=== PATIENT | male | born 1945 | race Caucasian/White ===

== ENCOUNTER 2024-08-14 06:03 | Inpatient (IN) ==
--- NOTE | 2024-07-18 10:19 | PAT Medication Instructions ---
Medication Instructions Date of Service July 18, 2024 Home Medications acetaminophen 500 mg tablet 500 mg PO BID PRN Pain aspirin 81 mg capsule 81 mg PO QAM diltiazem HCl 120 mg capsule,24 hr,extended release 120 mg PO QAM famotidine 20 mg tablet 20 mg PO QPM fenofibrate micronized 43 mg capsule 43 mg PO QAM furosemide 20 mg tablet 20 mg PO QAM icosapent ethyl 1 gram capsule (Vascepa) 2 g PO BID levothyroxine 75 mcg tablet 75 mcg PO QAM metoprolol succinate 100 mg tablet,extended release 24 hr 100 mg PO BID pantoprazole 40 mg tablet,delayed release 40 mg PO QAM rivastigmine tartrate 1.5 mg capsule 1.5 mg PO BID warfarin 5 mg tablet (Jantoven) 5 mg PO QAM ASK your prescriber and surgeon warfarin 5 mg tablet (Jantoven) 5 mg PO QAM icosapent ethyl 1 gram capsule (Vascepa) 2 g PO BID STOP taking 48 hours before surgery fenofibrate micronized 43 mg capsule 43 mg PO QAM DO NOT take the morning of surgery furosemide 20 mg tablet 20 mg PO QAM rivastigmine tartrate 1.5 mg capsule 1.5 mg PO BID Take morning of surgery With a small sip of water, OTHERWISE NOTHING TO EAT OR DRINK AFTER MIDNIGHT: acetaminophen 500 mg tablet 500 mg PO BID PRN Pain (if needed) aspirin 81 mg capsule 81 mg PO QAM (unless surgeon directed otherwise) diltiazem HCl 120 mg capsule,24 hr,extended release 120 mg PO QAM levothyroxine 75 mcg tablet 75 mcg PO QAM metoprolol succinate 100 mg tablet,extended release 24 hr 100 mg PO BID pantoprazole 40 mg tablet,delayed release 40 mg PO QAM Take evening before surgery acetaminophen 500 mg tablet 500 mg PO BID PRN Pain (if needed) famotidine 20 mg tablet 20 mg PO QPM metoprolol succinate 100 mg tablet,extended release 24 hr 100 mg PO BID rivastigmine tartrate 1.5 mg capsule 1.5 mg PO BID Other Notes If you have any questions please call us at [phone] or [phone] or [phone] or [phone]
--- NOTE | 2024-07-27 10:49 | Anesthesiology Consultation ---
Date of Service July 27, 2024 Assessment & Plan (1) Encounter for pre-operative examination: - Check coags DOS - Infectious disease screening: Per assessment on 07/27/24- No known recent infectious disease contacts or current infectious disease symptoms. - PCP visit (07/10/24): "From my for my standpoint, he is cleared for surgery. He will get clearance from cardiol on 07/17. He will get instructions regarding his Coumadin from the clinic at [facility] that manages his Coumadin." - [facility] Cardiology visit (07/17/24): "He can easily perform 4 metabolic units of activity without cardiac symptoms.. Unfortunately is incredibly statin intolerant.. His blood pressure is wellcontrolled.. He continues to be in atrial flutter today.. Not symptomatic..Utilizing the NSQIP risk calculator he has a 1% risk of cardiovascular complications during the operative and immediate postoperative period, which would be considered low risk for a moderate risk surgery. Due to this low risk, we did perform an ECG which was unchanged from back in October.. Would not recommend any further cardiac testing prior to spine surgery.. His warfarin can be held up to 5 days prior to procedure and he would not need an anticoagulation bridge prior to surgery. His aspirin should also be held prior to surgery." - Consents: Early stages of dementia. A+Ox3 at PAT visit. Patient signs own consents. (Of note, Son is KALIN Burris- and will be present DOS). - Awaiting most recent pacer check ([facility] cardio/Dr. Paz). Patient otherwise acceptable risk for surgery. Chart Review Chart Review: Patient seen in Pre Admission Testing Teaching & Discussion Pre-Anesthesia Teaching/Discussion Notes: Instructed NPO after midnight before surgery,except medications with 15 cc of water. Medication instructions provided according to the [facility] guidelines. History Surgery Operation Date: 08/14/24 12:55 Proposed Procedures p L4-L5 Decompression and Fusion, Spinal Cord Monitoring - Jef Durbin DO Height/Weight Height: 5 ft 6 in Weight: 88 kg Allergies Allergy/AdvReac Type Severity Reaction Status Date / Time Izyxofy-CLF-MgM Reductase Allergy Unknown Muscle Verified 07/27/24 10:11 Inhibitor aches [Daxnzbo-Plq-Qjd Reductase Inhibitor] flecainide AdvReac Severe Severe Verified 07/27/24 10:11 bradycardia Medications Home Medications Medication Instructions Recorded Confirmed Last Taken acetaminophen 500 mg tablet 500 mg PO BID PRN Pain 07/18/24 07/18/24 Unknown aspirin 81 mg capsule 81 mg PO QAM 07/18/24 07/18/24 Unknown diltiazem HCl 120 mg capsule,24 120 mg PO QAM 07/18/24 07/18/24 Unknown hr,extended release famotidine 20 mg tablet 20 mg PO QPM 07/18/24 07/18/24 Unknown fenofibrate micronized 43 mg 43 mg PO QAM 07/18/24 07/18/24 Unknown capsule furosemide 20 mg tablet 20 mg PO QAM 07/18/24 07/18/24 Unknown icosapent ethyl 1 gram capsule 2 g PO BID 07/18/24 07/18/24 Unknown (Vascepa) levothyroxine 75 mcg tablet 75 mcg PO QAM 07/18/24 07/18/24 Unknown metoprolol succinate 100 mg 100 mg PO BID 07/18/24 07/18/24 Unknown tablet,extended release 24 hr pantoprazole 40 mg tablet,delayed 40 mg PO QAM 07/18/24 07/18/24 Unknown release rivastigmine tartrate 1.5 mg 1.5 mg PO BID 07/18/24 07/18/24 Unknown capsule warfarin 5 mg tablet (Jantoven) 5 mg PO QAM 07/18/24 07/18/24 Unknown Past Medical History Medical History Atrial fibrillation and flutter CAD (coronary artery disease) stent x1 (2016) Chronic back pain Chronic kidney disease Degenerative disc disease Dementia Early stages (A&Ox3) Lives with son and [id number] (son does have POA) Dyslipidemia Gastroparesis GERD (gastroesophageal reflux disease) History of COVID-19 ~2021: mild cold symptoms > resolved Hx of gastric ulcer ~1980s Hx of renal calculi Passed on own, no surgical intervention needed () Hypertension Hypothyroidism Osteoarthritis Pacemaker Implanted 2017, [employer] device Follows with Dr. Paz ([facility] Cardiology) Valvular heart disease s/p MV repair (2013) Echo 07/2023: There is a mitral valve bioprosthesis present. Significant mitral valve prosthesis stenosis/regurgitation is absent. Exercise / Class Metabolic Activity III < 4 Walking/Shop/Light housework Past Family History Family History Other No family history of adverse response to anesthesia Past Surgical History Surgical History H/O hernia repair History of cardiac cath 2017 ([facility]) History of cholecystectomy History of colonoscopy History of esophagogastroduodenoscopy (EGD) History of heart artery stent stent x1 (2016) S/P hip replacement Right? (unilateral) S/P mitral valve repair (2013) [facility] S/P placement of cardiac pacemaker (2017) Status post medial meniscus repair Per records Past Anesthesia History No Hx of Anesthesia Complications and No Family Hx of Anesthesia Complications History of PONV No Hx of PONV and No Hx of Motion Sickness Social History Smoking Status: Never smoker Do You Dip or Chew Tobacco: No Hx Alcohol Use: No Hx Substance Use: No substance use type: does not use Review of Systems Patient denies chest pain, shortness of breath, fever, chills, cough, wheezing, palpitations. Physical Exam Vital Signs BP 118/64 P 59 TEMP 97.4 SP02 99%RA RESP 18 Physical Full cervical extension range of motion. Full TMJ range of motion. TMD > 3.5 finger breaths Mallampati Score II Dentition: + upper fulld enture, lower partial Lungs: clear throughout to auscultation Cardiac: regular rate and rhythm, distant heart sounds Spine: normal Carotid arteries: negative bruit Extremities: no LE edema Lab Results Anesthesia Preop Results Results Anesthesia Widget: WBC 8.50 K/ul (4.8-10.8) 07/27/24 Hgb 13.0 g/dl (14.0-18.0) L 07/27/24 Hct 39.4 % (42.0-52.0) L 07/27/24 Plt 326 K/uL (130-400) 07/27/24 Na 141 mmol/L (136-145) 07/27/24 K 3.9 mmol/L (3.5-5.1) 07/27/24 Cl 110 mmol/L (98-107) H 07/27/24 CO2 23 mmol/L (21-32) 07/27/24 BUN 29 mg/dl (6-23) H 07/27/24 Creat 1.51 mg/dl (0.6-1.4) H 07/27/24 Glucose Level 84 mg/dl (70-99(Fasting)) 07/27/24 PT 32.4 Seconds (9.0-12.0) H 07/27/24 PTT 47 Seconds (21-31) H 07/27/24 INR 3.3 (0.9-1.1) H 07/27/24 Urine Color Yellow 07/27/24 Urine Appearance Clear (Clear) 07/27/24 Urine pH 5.5 (4.5-7.5) 07/27/24 Urine Specific [place] 1.025 (1.000-1.030) 07/27/24 Urine Protein Negative (Negative) 07/27/24 Urine Glucose (UA) Negative (Negative) 07/27/24 Urine Ketones Negative (Negative) 07/27/24 Urine Blood Negative (Negative) 07/27/24 Urine Nitrite Negative (Negative) 07/27/24 Urine Bilirubin Negative (Negative) 07/27/24 Urine Urobilinogen Negative (Negative) 07/27/24 Urine Leukocyte Esterase Negative (Negative) 07/27/24 Blood Type A Positive 07/27/24 Antibody Screen NEGATIVE 07/27/24 Testing Electrocardiogram Date: 07/17/24 Atrial flutter with variable AV block at [address] and T wave abnormality, consider inferior ischemia. ECG performed at cardiac preop evaluation appointment in which compared to prior 10/2023, no significant change noted per cable maintainer comparison. Chest X-Ray Date: 07/10/24 A cardiac device projects over the left heart. Median sternotomy wires present. No active disease. Echocardiogram Date: 08/05/23 LVEF 55-59%. There is a mitral valve bioprosthesis present. Significant mitral valve prosthesis stenosis/regurgitation is absent. Mild TR. Atrial fibrillation during the examination.
--- OUTSIDE RECORDS SUMMARY | 2024-08-14 06:09 | External Medical Summary | Summary of Care ---
Author Name Unknown Organization [facility] Address [address] [place] [address] Phone [phone] Care Team Providers Care Consulting Sme Name Role Phone Deshawn Rodriguez MD Primary Care Provider Reason for Visit * Reason Comments eRx-Medication Refill Encounter Details Date Type Department Care Team (Late st Contact Info) Description 07/30/2024 Refill [facility] [address] [place] [address] Deshawn Rodriguez MD [address] [facility] [place] [address] Dyslipidemia, goal LDL below 100; Hypertriglyceridemia Allergies Active Allergy Reactions Criticality Noted Date Comments Rosuvastatin Calcium 08/19/2012 Leg cramps Flecainide 02/19/2020 Atorvastatin Calcium 10/07/2012 Leg cramps Pravastatin 07/26/2015 Pains in the legs Simvastatin 06/14/2002 leg cramps Rivaroxaban Bradycardia 11/26/2016 Ezetimibe 02/19/2021 Pain, leg weakness documented as of this encounter (statuses as of 08/03/2024) Medications warfarin sodium (COUMADIN) 5 MG TabletIndicatio ns:Atrial fibrillation (HCC) One and half tablets daily as directed by the Co-ag clinic. 45 Tab 11/30/19 20 Active nitroglycerin (NITROSTAT) 0.4 MG SUBL 1 Tablet. 05/17/20 19 Active Aspirin 81 MG Oral Tablet Delayed Release 1 Tablet. 06/27/20 Active Ondansetron HCl 4 MG Oral Tablet Take 1 Tablet by mouth every 8 hours as needed for Nausea. 20 Tablet 3 4:01 PM EDT 10/10/19 Active Additional Information Patient not taking.Reported on 08/18/2023 Icosapent Ethyl 1 GM Oral Capsule (Vascepa) Take 2 Capsules by mouth 2 times a day with morning and evening meals. Swallow capsules whole, do not open or break. 120 Capsule 11 12/25/19 23 Active Tylenol 325 MG Oral Capsule (Acetaminophen) Take 325 mg by mouth every 8 hours as needed for Pain. Active Rivastigmine Tartrate 1.5 MG Oral Capsule (Exelon) 12/11/19 24 Active dilTIAZem HCl ER Coated Beads 120 MG Oral Capsule Extended Release 24 Hour (Cardizem CD) 01/03/20 24 Active Metoprolol Succinate ER 100 MG Oral Tablet Extended Release 24 Hour (toPROL XL) 1 Tablet in the morning and 1 Tablet before bedtime. 12/11/19 24 Active Ezetimibe 10 MG Oral Tablet (Zetia) Take 1 Tablet by mouth in the morning. Active Lisinopril 10 MG Oral Tablet (Prinivil) Take 1 Tablet by mouth in the morning. Active Pantoprazole Sodium 40 MG Oral Tablet Delayed Release (Protonix) TAKE ONE TABLET BY MOUTH ONCE DAILY 90 Tablet 1 04/23/20 24 Active Famotidine 20 MG Oral Tablet (Pepcid) Take 1 Tablet by mouth every evening. 60 Tablet 2 05/02/20 24 Active Levothyroxine Sodium 75 MCG Oral Tablet (Levoxyl)Indica tions:Hypothyro idism TAKE ONE TABLET BY MOUTH ONCE DAILY DIRECTED 90 Tablet 1 05/22/20 24 Active Furosemide 20 MG Oral Tablet (Lasix) TAKE ONE TABLET BY MOUTH IN THE MORNING 90 Tablet 1 05/22/20 24 Active Fenofibrate Micronized 43 MG Oral CapsuleIndicati ons:Dyslipidemi a, goal LDL below 100,Hypertrigly ceridemia TAKE ONE CAPSULE BY MOUTH ONCE DAILY 90 Capsule 07/31/19 25 Active Fenofibrate Micronized 43 MG Oral CapsuleIndicati ons:Dyslipidemi a, goal LDL below 100,Hypertrigly ceridemia TAKE ONE CAPSULE BY MOUTH ONCE DAILY 90 Capsule 2 10/28/19 24 025 Discontinued documented as of this encounter (statuses as of 08/03/2024) Active Problems Problem Noted Date Diagnosed Date COPD, group B, by GOLD 2017 classification 07/31 Overview: Per COPD GOLD Classification Mild dementia without behavi oral disturbance, psychotic disturbance, mood disturbance, or anxiety 01/10/2024 Heart failure 01/10/2024 Centrilobular emphysema 08/16/2023 Longstanding persistent atrial fibrillation 07/19 S/P MVR (mitral valve replacement) 07/31/2023 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 Patient will try physical therapy. Hypertensive kidney disease with stage 3b chronic kidney disease 02/24/2021 Overview: Per CKD protocol Chronic kidney disease, stage 3b 02/24/2021 Overview: Per CKD protocol Presence of cardiac pacemaker 03/08/2020 Overview (03/08/2020): Leadless pacemaker was placed 02/2020 for symptomatic bradycardia 25 per minute S/P right coronary artery (RCA) stent placement 05/11/2019 Overview (05/11/2019): 05/11/2019 done at [facility] Permanent atrial fibrillation 02/06/2019 Statin intolerance 08/05/2017 Overview (03/07/2018): 03/07/2018 Zetia too expensive Chronic anticoagulation 02/23/2017 Overview (02/23/2017): By [facility] Hiatal hernia 02/23/2017 Overview (02/23/2017): 02/23/2017 Large Will have surg eval Medically noncompliant 12/07/2016 S/P mitral valve repair 08/29/2013 Overview (03/07/2018): TTE done on 09/30/2012 show moderately severe mitral regurg with nml mitral valve structure Hypogonadism, male 08/19/2012 HTN (hypertension) 03/16/2012 History of iron deficiency anemia 02/19/2012 Overview (04/09/2016): 04/09/2016 taking iron Hemoglobin Results: HGB(g/dL) Cathy Dt/Tm Resulted Value Status 12/10/15 8:45A 12/10/15 15.1 FINAL 04/03/15 9:52A 04/03/15 13.9* FINAL 08/29/13 9:03A 08/29/13 14.5 FINAL HGB(g/dL) Cathy Dt/Tm Resulted Value Status 08/29/13 9:03A 08/29/13 14.5 FINAL 04/13/13 8:32A 04/13/13 12.6* FINAL 11/17/12 1:38P 11/17/12 14.6 FINAL 02/17/12 4:25P 02/18/12 12.8* FINAL 10/23/11 9:50A 10/23/11 12.7* FINAL 02/06/11 8:25A 02/06/11 13.1* FINAL 09/27/09 8:15A 09/27/09 12.8* FINAL 05/17/09 8:16A 05/17/09 13.2* FINAL 11/30/08 8:06A 11/30/08 13.5* FINAL 06/01/08 8:00A 06/01/08 13.8* FINAL 11/18/07 8:07A 11/18/07 13.6* FINAL 04/08/07 7:35A 04/08/07 13.8* FINAL 10/15/06 7:58A 10/15/06 14.3 FINAL Vitamin D deficiency 02/19/2012 Erectile dysfunction 02/17/2012 Testosterone deficiency 08/03/2011 Overview (03/21/2015): 03/21/2015 Took T injection for ~1 yr Stopped ~ 1yr ago no help with libido or erections HAs had Monthly testosterone injectionsby Dr Gil Barber flutter 07/31/2010 HYPOTHYROIDISM NOS 05/04/2010 Overview (03/07/2018): TSH Results: TSH(uIU/mL) Cathy Dt/Tm Resulted Value Status 08/23/17 8:23A 08/23/17 1.42 FINAL 11/26/16 6:13P 11/26/16 1.89 FINAL 07/23/16 9:33A 07/23/16 3.34 FINAL 04/03/15 9:52A 04/03/15 1.44 FINAL 08/29/13 9:03A 08/29/13 4.39* FINAL 04/13/13 8:32A 04/14/13 9.91* FINAL Dyslipidemia, goal LDL below 70 07/03/2009 Overview (07/23/2016): LDL (DIRECT MEASURE)(mg/dL) Cathy Dt/Tm Resulted Value Status 04/09/16 9:15A 04/09/16 142* FINAL Advance directive discussed with patient 005 Overview (07/26/2015): 07/26/2015 Discussed advance directive and living will 1 POA 2 POA son Ryan Burris [phone] POA daughter Trinh Doyle Given brochure No, Advance Directive brochure given to patient at prior appointment. Family history of cardiovascular disease 002 CAD (coronary artery disease) Overview (03/21/2015): No critical CAD documented as of this encounter (statuses as of 08/03/2024) Resolved Problems Problem Noted Date Diagnosed Date Resolved Date Syncope and collapse 07/31/2023 024 Acute cholecystitis 05/16/2023 08/16/19 24 Diverticulitis of sigmoid colon 04/02/2023 08/16/2023 Chronic kidney disease, stage 3a 11/26/2020 03/04/2021 Overview: Per CKD protocol Hypertensive kidney disease with stage 3a chronic kidney disease 08/26/2020 03/04/2021 Overview: Per CKD protocol Unstable angina 05/08/2019 02/19/2020 Pain in left arm 05/06/2019 05/08/2019 Hypertensive kidney disease with stage 3 chronic kidney disease 01/16/2019 08/29/2020 Overview: Per CKD protocol Heme positive stool 01/12/2017 03/07/20 18 Overview (08/05/2017): 08/05/2017 was likely due to the large paraesoph hernia . 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 documented as of this encounter (statuses as of 08/03/2024) Immunizations Name Administration Dates Next Due COVID-19 mRNA, LNP-s, No Pre serve, 2-Dose Series (Anaplan) 05/21/2021,10/01/2020,09/01/2020 PPD 05/04/2016 Pneumococcal Conjugate Vacc, 13 Valent (Prevnar) 03/21/2015 Pneumococcal Polysaccharide PPV23 (Pneumovax) 03/27/2016,04/18/2007 Seasonal Influenza Vac., MDV , IM, 0.5 mL (Fluzone) 03/21/2015,04/16/2014,04/11/2013,04/20,08/03/2011(Deferred: Patient Refused),06/18/2011,06/06/2008 Seasonal Influenza, High Dos e, Trivalent, PF, IM (Fluzone HD) 05/13/2024,05/08/2019 Seasonal Influenza, PF, 6 M & above, IM , (FluLaval or Fluzone) 06/27/2018 Seasonal Influenza, Quadriva lent Hd (Fluzone Hd) 04/02/2023,04/15/2022,04/04/2022,08/25 Seasonal Influenza, Quadriva lent, No Preserve, IM 04/24/2016 TD, Preservative Free 12/06/2008, 009(Deferred: Patient Refused) TDAP (age 10 and older)(Boostrix) 02/19/2020 Zoster Vaccine Recombinant (Shingrix) 02/19/2020 documented as of this encounter Social History Tobacco Use Types Packs/Day Years Used Date Smoking Tobacco: Former Cigarettes 0.5 12 Pipe Quit: 1997 Smokeless Tobacco: Former Comments:pipe smoker-1/2 nazario ch of tobacco per day Alcohol Use Standard Drinks/Week Comments No 0 (1 standard drink = 0.6 oz pur e alcohol) PHQ-2 Answer Date Recorded PHQ Adult Total Score 0 08/16/2023 Hunger Vital Sign Answer Date Recorded Within the past 12 months, y ou worried that your food would run out before you got the money to buy more. Never true 08/18/19 24 Within the past 12 months, t he food you bought just didn't last and you didn't have money to get more. Never true 08/18/2023 Childcare Answer Date Recorded Do you feel overwhelmed with taking care of a child, family member or friend? No 08/18/2023 Does your family need help f inding childcare? (Household - for ages 0-17 years) Not on file 08/18/2023 Clothing Answer Date Recorded Have you been unable to get clothing when it was really needed? No 08/18/2023 Is your family able to get c lothes or diapers when needed? (Household - for ages 0-17 years) Not on file 08/18/2023 Personal Safety Answer Date Recorded Do you feel unsafe or have concerns for your saf ety? No 08/18/2023 Do you have concerns for you r family's safety? (Household - for ages 0-17 years) Not on file 08/18/2023 Utilities Answer Date Recorded Do you have trouble paying y our heating, water, or electric bill? No 08/18/2023 Is your family able to pay t he heat, water, or electric bill? (Household - for ages 0-17 years) Not on file 08/18/2023 Does your family have access to good internet? (Household - for ages 0-17 years) Not on file 08/18/2023 Employment Status Answer Date Recorded Are you unemployed or without regular income? No 08/18/2023 Does the household have a re gular source of income? (Household - for ages 0-17 years) Not on file 08/18/2023 Social Connections Answer Date Recorded How often do you feel lonely or isolated from th ose around you? Never 08/18/2023 Financial Resource Strain Answer Date R ecorded Do you have any trouble payi ng for your medications, or do you think you might in the future? No 08/18/2023 Does your family have troubl e paying for medicine? (Household - for ages 0-17 years) Not on file 08/18/2023 Transportation Needs Answer Date Record ed READ ONLY Do you have troubl e getting a ride to medical visits or work? Never True 08/18/2023 Does your family have a hard time getting a ride to doctors visits? (Household - for ages 0-17 years) Not on file 08/18/2023 Has lack of transportation k ept you from medical appointments, meetings, work, or from getting things needed for daily living? Check all that apply. (Adult - for ages 18 years and over) Not on file 08/18/2023 Do you (or your family) have trouble finding or paying for a ride (transportation)? (Household - for ages 0-17 years) Not on file 08/18/2023 Housing Stability Answer Date Recorded Do you currently live in a s helter or have no steady place to sleep at night? No 08/18/2023 READ ONLY Do you think you a re at risk of becoming homeless? No 08/18/2023 Does your family worry about paying for your home or becoming homeless? (Household - for ages 0-17 years) Not on file 0 08/18/2023 Are you homeless or worried that you might be in the future? (Adult - for ages 18 years and over) Not on file Are you (or your family) keegan eless or worried that you might be in the future? (Household - for ages 0-17 years) Not on file Food Insecurity Answer Date Recorded Do you need food for this week? No 08/18/2023 Are you able to get enough f ood for your family? (Household - for ages 0-17 years) Not on file 08/18/2023 Does your family need food t his week? (Household - for ages 0-17 years) Not on file 08/18/2023 Do you always have enough fo od for your family? 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 Answer Date of Assessment Author No 08/05/2023 3:56 PM Cam Proctor RN * Are you blind or do you have serious difficulty seeing, even when wearing glasses? Answer Date of Assessment Author No 08/05/2023 3:56 PM Cam Proctor RN * Do you have serious difficulty walking or climbing stairs? (5 years old or older) Answer Date of Assessment Author No 08/05/2023 3:56 PM Cam Proctor RN * Do you have difficulty dressing or bathing? (5 years old or older) Answer Date of Assessment Author No 08/05/2023 3:56 PM Cam Proctor RN * Because of a physical, mental, or emotional condition, do you have difficulty doing errands alone such as visiting a doctors office or shopping? (15 years old or older) Answer Date of Assessment Author No 08/05/2023 3:56 PM Cam Proctor RN documented as of this encounter Mental Status * Because of a physical, mental, or emotional condition, do you have serious difficulty concentrating, remembering, or making decisions? (5 years old or older) Answer Entry Date Author No 08/05/2023 3:56 PM Cam Proctor RN documented in this encounter Miscellaneous Notes * Telephone Encounter - Ryan Hodges - 08/03/2024 10:51 PM EST Received message from [facility] regarding patient needing labs. Patient was notified. Successfully contacted patient and provided [facility] message. * Telephone Encounter - Brain Reynaga [facility] - 07/31/2024 9:41 AM ESTSigned Prescriptions: Disp Refills Fenofibrate Micronized 43 MG Oral Capsule 90 Cap*0 Sig: TAKE ONE CAPSULE BY MOUTH ONCE DAILY Authorizing Provider: DESHAWN RODRIGUEZ Ordering User: BRAIN REYNAGA * Telephone Encounter - Brain Reynaga RPh - 07/31/2024 9:40 AM EST Provided 90 days supply with 0 refill(s). Per refill protocol patient should have lipid panel on file within past year. Reviewed AMP report, Care Gaps/Health Maintenance, medications list, and for any routine labs typically ordered for this patient. Lab orders placed. Please contact patient to advise of labs ordered for blood draw. Recommend patient to fast if able for labs. Patient may still have water and regular medications. Advise to obtain labs before requesting the next refill. Thank you, Brain Reynaga, PharmD Clinical Pharmacist [facility] ([facility]) 07/31/24 9:40 AM [phone] documented in this encounter Plan of Treatment Upcoming Encounters Date Type Department Care Team (Late st Contact Info) Description 01/08/2025 9:00 AM EDT Office Visit [facility] [address] [place] [phone] Deshawn Rodriguez MD [address] [phone] Scheduled Procedures Name Priority Associated Diagnoses Date/Ti me COLONOSCOPY FLEXIBLE PROXIMA L DIAGNOSTIC Recall History of colonic polyps Health Maintenance Due Date Last Done Comments Zoster Vaccines (2 of 2) 04/15/2020 02/19/2020 Adult Wellness Visit 06/02/2023 06/02/2022 GFR 02/07/2024 08/09/2023, 07/20, 08/07/2023, Additional history exists COVID-19 Vaccine ( season) 2024 05/21/2021, 10/01/2020, 09/01/2020 Albumin/Creatinine Ratio 05/27/2024 05/27/2023, 11/2016 CKD PHOS USE SMARTSET 10312 08/01/202407/19, 10/09/2022, 10/08/2022, Additional history exists CKD HGB USE SMARTSET 71238 08/09/202408/09, 08/08/2023, 08/07/2023, Additional history exists Depression Screening 08/16/2024 08/16/2023 TSH 11/24/2024 11/25/2023, 10/2023, 10/05/2022, Additional history exists O2 ASSESSMENT COMPLETED IN PAST YEAR FOR COPD 07/10/2025 07/10/2024 Colonoscopy 04/02/2028 04/02/2023, 03/19, 02/05/2017, Additional history exists DTap/Tdap Vaccines (2 - Td or Tdap) 02/18/2030 02/19/2020, 12/06/2008 Pneumococcal Vaccine: 50+ Years Completed 03/27/2016, 03/21/2015, 04/18/2007 RETIRED - COLONOSCOPY-EVERY 5 YRS AGES 18-100 Discontinued 04/02/2023, 04/02/2023, 02/05/2017, Additional history exists Alpha-1 Antitrypsin Completed 01/27/2024 Influenza Vaccine (FLU shot) Completed 05/13/2024, 05/13/2024, 04/02/2023, Additional history exists HPV (Gardasil) Vaccine Aged Out No lo nger eligible based on patient's age to complete this topic Hepatitis B Vaccine Aged Out No longe r eligible based on patient's age to complete this topic MENINGOCOCCAL (MENACTRA/MENVEO) Aged Out No longer eligible based on patient's age to complete this topic documented as of this encounter Medical Devices Not on filedocumented as of this encounter Results * (ABNORMAL) LIPID PANEL WITH DIRECT LDL IF TG IS HIGH (08/03/2024 1:43 PM EST) Triglycerides 395(H) <=174 mg/dL 08/03/2024 9:21 PM EST [facility] Comment: Triglyceride Reference Ranges (mg/dL): <150 Acceptable 150-174 Borderline high 175-499 High >=500 Very high Cholesterol 274(H) <200 mg/dL 08/03/2024 9:21 PM EST [facility] Comment: Total Cholesterol Reference Ranges (mg/dL): <200 Desirable 200-239 Borderline high >=240 High HDL Cholesterol 21(L) >39 mg/dL 9:21 PM EST [facility] Comment: HDL Cholesterol Reference Ranges (mg/dL): >=60 High (Desirable) <50 Low (Undesirable) For Females <40 Low (Undesirable) For Males Non-HDL Cholesterol 253(H) <=159 mg/dL 08/03/2024 9:21 PM EST [facility] Comment: Non-HDL Cholesterol Reference Range (mg/dL): <100 Target level for high risk ASCVD patient <130 Optimal for general population 130-159 Near optimal for general population 160-189 Borderline High 190-219 High >=220 Very High LDL Cholesterol 174(H) <=129 mg/dL 08/03/2024 9:21 PM EST [facility] Comment: LDL Cholesterol Reference Ranges (mg/dL): <70 Target level for high risk ASCVD patient <100 Optimal for general population 100-129 Near optimal for general population 130-159 Borderline high 160-189 High >=190 Very high Blood Venipuncture / Unknown 08/03/2024 1:43 PM EST 08/03/2024 1:43 PM EST Brain Reynaga [facility] LAB BLOOD ORDERABLES Fin al Result [facility] [address] [place] [address] documented in this encounter Visit Diagnoses Diagnosis Dyslipidemia, goal LDL below 100 Other and unspecified hyperlipidemia Hypertriglyceridemia Pure hyperglyceridemia documented in this encounter Advance Directives * Full Code (Latest Code Status on File) Date Activated Date Inactivated Comments 08/05/2023 12:00 PM 08/09/2023 6:26 PM This order reflects the patients wishes and were consensually agreed upon. Question Answer Comments Discussion of Advance Directives occurred with: Family * Full Code Date Activated Date Inactivated Comments 07/31/2023 12:50 PM 08/03/2023 5:08 PM This order reflects the patients wishes and were consensually agreed upon. Question Answer Comments Discussion of Advance Directives occurred with: Patient Does the patient have a Living Will? No Does the patient have Health Care Power of Attor pamela? No * Full Code Date Activated Date Inactivated Comments 05/16/2023 6:34 AM 05/20/2023 3:43 PM This order reflects the patients wishes and were consensually agreed upon. Question Answer Comments Discussion of Advance Directives occurred with: Family * Full Code Date Activated Date Inactivated Comments 05/16/2023 5:30 AM 05/16/2023 6:33 AM This order reflects the patients wishes and were consensually agreed upon. Question Answer Comments Discussion of Advance Directives occurred with: Patient * No Code Date Activated Date Inactivated Comments 10/05/2022 6:51 AM 10/09/2022 7:47 PM This order r eflects the patients wishes and were consensually agreed upon. Question Answer Comments Discussion of Advance Directives occurred with: Patient Does the patient have a Living Will? No Does the patient have Health Care Power of Attor pamela? No Care Teams Consulting Sme Relationship Specialty Start Date End Date Deshawn Rodriguez MD [address] [address] PCP - General Family Medicine 01/27/23 documented as of this encounter
--- OUTSIDE RECORDS SUMMARY | 2024-08-14 06:09 | External Medical Summary ---
Author Name Unknown Address Unknown Organization [id number]:LABORATORY [facility] - [address] [address] Laboratory Report Ordering Provider Test Date Status ZACKARY CROWELL 08/03/2024 13:43:47 Final Warfarin Therapy
INR: 2 .0-3.0 conventional anticoagulation
INR: 2.5- 3.5 high intensity anticoagulation Observation Date Value Abnormality Reference (Units ) Status PT 08/03/2024 13:43:47 26.6 Above high normal 11 .6-15.2 (seconds) Final INR 08/03/2024 13:43:47 2.4 Above high normal 0. 8-1.2 Final Performing Location [facility] - [address] [place] [address]
--- OUTSIDE RECORDS SUMMARY | 2024-08-14 06:09 | External Medical Summary | Summary of Care ---
Author Name Unknown Organization [facility] Address [address] [place] [address] Phone [phone] Care Team Providers Care Store Consultant Name Role Phone Gregory Rodriguez MD Primary Care Provider Encounter Details Date Type Department Care Team (Late st Contact Info) Description 08/07/2024 Population Health External Data Unspecified Department Allergies Active Allergy Reactions Criticality Noted Date Comments Rosuvastatin Calcium 08/19/2012 Leg cramps Flecainide 02/19/2020 Atorvastatin Calcium 10/07/2012 Leg cramps Pravastatin 07/26/2015 Pains in the legs Simvastatin 06/14/2002 leg cramps Rivaroxaban Bradycardia 11/26/2016 Ezetimibe 02/19/2021 Pain, leg weakness documented as of this encounter (statuses as of 08/07/2024) Medications warfarin sodium (COUMADIN) 5 MG TabletIndication s:Atrial fibrillation (HCC) One and half tablets daily as directed by the [facility]. 45 Tab 0 Active nitroglycerin (NITROSTAT) 0.4 MG SUBL 1 Tablet. 9 Active Aspirin 81 MG Oral Tablet Delayed Release 1 Tablet. 0 Active Ondansetron HCl 4 MG Oral Tablet Take 1 Tablet by mouth every 8 hours as needed for Nausea. 20 Tablet 10/09/2022 4:01 PM EDT 3 Active Additional Information Patient not taking.Reported on 08/18/2023 Icosapent Ethyl 1 GM Oral Capsule (Vascepa) Take 2 Capsules by mouth 2 times a day with morning and evening meals. Swallow capsules whole, do not open or break. 120 Capsule 11 3 Active Tylenol 325 MG Oral Capsule (Acetaminophen) Take 325 mg by mouth every 8 hours as needed for Pain. Active Rivastigmine Tartrate 1.5 MG Oral Capsule (Exelon) 4 Active dilTIAZem HCl ER Coated Beads 120 MG Oral Capsule Extended Release 24 Hour (Cardizem CD) 4 Active Metoprolol Succinate ER 100 MG Oral Tablet Extended Release 24 Hour (toPROL XL) 1 Tablet in the morning and 1 Tablet before bedtime. 4 Active Ezetimibe 10 MG Oral Tablet (Zetia) Take 1 Tablet by mouth in the morning. Active Lisinopril 10 MG Oral Tablet (Prinivil) Take 1 Tablet by mouth in the morning. Active Pantoprazole Sodium 40 MG Oral Tablet Delayed Release (Protonix) TAKE ONE TABLET BY MOUTH ONCE DAILY 90 Tablet 1 4 Active Famotidine 20 MG Oral Tablet (Pepcid) Take 1 Tablet by mouth every evening. 60 Tablet 2 4 Active Levothyroxine Sodium 75 MCG Oral Tablet (Levoxyl)Indicat ions:Hypothyroid ism TAKE ONE TABLET BY MOUTH ONCE DAILY DIRECTED 90 Tablet 1 4 Active Furosemide 20 MG Oral Tablet (Lasix) TAKE ONE TABLET BY MOUTH IN THE MORNING 90 Tablet 1 4 Active Fenofibrate Micronized 43 MG Oral CapsuleIndicatio ns:Dyslipidemia, goal LDL below 100,Hypertriglyc eridemia TAKE ONE CAPSULE BY MOUTH ONCE DAILY 90 Capsule 5 Active documented as of this encounter (statuses as of 08/07/2024) Active Problems Problem Noted Date Diagnosed Date [...] placement 05/11/2019 Overview (05/11/2019): [place] [facility] [place]ermanent [place] fibrillation 02/06/2019 Statin intolerance 08/05/2017 Overview (03/07/2018): 03/07/2018 Zetia too expensive Chronic anticoagulation 02/23/2017 Overview (02/23/2017): [place] [facility] [place] hernia 02/23/2017 Overview (02/23/2017): 02/23/2017 Large [...] erections HAs had Monthly testosterone injectionsby Dr Cordero Atrial flutter 07/31/2010 HYPOTHYROIDISM NOS 05/04/2010 Overview (03/07/2018): [...] 1 POA 2 POA son Ryan Burris [phone] POA daughter Trinh Doyle Given brochure No, Advance Directive brochure given to patient at prior appointment. 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 Answer Date of Assessment Author No 08/05/2023 3:56 PM EST Cam Woo RN * Are you blind or do [...] Cam Proctor RN documented in this encounter Plan of Treatment Upcoming Encounters Date Type Department Care Team (Late st Contact Info) Description 01/08/2025 9:00 AM EDT Office Visit [facility] [address] [phone] Gregory Rodriguez MD [address] [phone] Scheduled Procedures Name Priority Associated Diagnoses Date/Ti me COLONOSCOPY FLEXIBLE PROXIMA L DIAGNOSTIC Recall History of colonic polyps Health Maintenance Due Date Last Done Comments Zoster Vaccines (2 of 2) 04/15/2020 02/19/2020 Adult Wellness Visit 06/02/2023 06/02/2022 GFR 02/07/2024 08/09/2023, 07/20, 08/07/2023, Additional history exists COVID-19 Vaccine ( season) 2024 05/21/2021, 10/01/2020, 09/01/2020 Albumin/Creatinine Ratio 05/27/2024 05/27/2023, 11/2016 CKD PHOS USE SMARTSET 64407 08/01/202407/19, 10/09/2022, 10/08/2022, Additional history exists CKD HGB USE SMARTSET 64846 08/09/202408/09, 08/08/2023, 08/07/2023, Additional history exists Depression [...] Not on filedocumented as of this encounter Advance Directives * Full Code [...] Power of Attor pamela? No Care Teams Store Consultant Relationship Specialty Start Date End Date Gregory Rodriguez MD [address] [id number] PCP - General Family Medicine 01/27/23 documented as of this encounter
--- OUTSIDE RECORDS SUMMARY | 2024-08-14 06:09 | External Medical Summary | Summary of Care ---
Author Name Unknown Organization [facility] Address [address] [place] [address] Phone [phone] Care Team Providers Care Water Valve Repairer Name Role Phone Gregory Rodriguez MD Primary Care Provider Reason for Visit * Reason Comments Outpatient Testing Encounter Details Date Type Department Care Team (Late st Contact Info) Description 08/03/2024 1:40 PM EST Laboratory Laboratory, [facility] [address] [place] [id number] [facility], Lab [address] [place] [address] jail (current) use of anticoagulants; Encounter for therapeutic drug monitoring; Dyslipidemia, goal LDL below 100; Hypertriglyceridemia Allergies Active Allergy Reactions Criticality Noted Date Comments Rosuvastatin Calcium 08/19/2012 Leg cramps Flecainide 02/19/2020 Atorvastatin Calcium 10/07/2012 Leg cramps Pravastatin 07/26/2015 Pains in the legs Simvastatin 06/14/2002 leg cramps Rivaroxaban Bradycardia 11/26/2016 Ezetimibe 02/19/2021 Pain, leg weakness documented as of this encounter (statuses as of 08/03/2024) Medications warfarin sodium (COUMADIN) 5 MG TabletIndication [...] placement 05/11/2019 Overview (05/11/2019): 05/11/2019 [place] [facility] [place] fibrillation 02/06/2019 Statin intolerance 08/05/2017 Overview (03/07/2018): 03/07/2018 Zetia too expensive Chronic anticoagulation 02/23/2017 [place] (02/23/2017): [place] [facility] [place]atal hernia 02/23/2017 Overview (02/23/2017): 02/23/2017 Large [...] 1 POA 2 POA son Ryan Burris [phone] POA daughter Trinh Doyle Given brochure [...] 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 [...] Description 01/08/2025 9:00 AM EDT Office Visit [facility] [address] [place] [phone] Gregory Rodriguez MD [address] [id number] Pending Results Name Type Priority Associated Diagnoses Date /Time PT INR 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 Encounter for therapeutic drug monitoring 08/03/2024 1:43 PM EST LIPID PANEL WITH DIRECT LDL IF TG IS HIGH Lab Routine Dyslipidemia, goal LDL below 100 Hypertriglyceridemia 08/03/2024 1:43 PM EST Scheduled Procedures Name Priority Associated Diagnoses Date/Ti me COLONOSCOPY FLEXIBLE PROXIMA L DIAGNOSTIC Recall History of colonic polyps Health Maintenance Due Date Last Done Comments Zoster Vaccines (2 of 2) 04/15/2020 02/19/2020 Adult Wellness Visit 06/02/2023 06/02/2022 GFR 02/07/2024 08/09/2023, 07/20, 08/07/2023, Additional history exists COVID-19 Vaccine ( season) 2024 05/21/2021, 10/01/2020, 09/01/2020 Albumin/Creatinine Ratio 05/27/2024 05/27/2023, 11/2016 CKD PHOS USE SMARTSET 31686 08/01/202407/19, 10/09/2022, 10/08/2022, Additional history exists CKD HGB USE SMARTSET 28956 08/09/202408/09, 08/08/2023, 08/07/2023, Additional history exists Depression [...] Not on filedocumented as of this encounter Visit Diagnoses Diagnosis 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 No Care Teams Water Valve Repairer Relationship Specialty Start Date End Date Gregory Rodriguez MD [address] [id number] PCP - General Family Medicine 01/27/23 documented as of this encounter
--- OUTSIDE RECORDS SUMMARY | 2024-08-14 06:10 | External Medical Summary ---
Author Name Unknown Address Unknown Organization K01[facility] [address] [facility] [address] Laboratory Report Ordering Provider Test Date Status RONNELL DE LA PAZ 08/03/2024 13:43:47 Final Observation Date Value Abnormality Reference (Units ) Status Triglyceride 08/03/2024 13:43:47 395 Above high normal <=174 (mg/dL) Final Triglyceride Reference Range s (mg/dL):
<150 Acceptable
150-174 Borderline high
175-499 High
>=500 Very high Cholesterol 08/03/2024 13:43:47 274 Above high normal <200 (mg/dL) Final Total Cholesterol Reference Ranges (mg/dL):
<200 Desirable
200-239 Borderline high
>=240 High HDL 08/03/2024 13:43:47 21 Below low normal >39 (mg/dL) Final HDL Cholesterol Reference Ra nges (mg/dL):
>=60 High (Desirable)
<50 Low (Undesirable) For Females
<40 Low (Undesirable) For Males NON-HDL CHOLESTEROL 08/03/2024 13:43:47 253 Above high normal <=159 (mg/dL) Final Non-HDL Cholesterol Referenc e Range (mg/dL):
<100 Target level for high risk ASCVD patient
<130 Optimal for general population
130-159 Near optimal for general population
160-189 Borderline High
190-219 High
>=220 Very High LDL, (calculated) 08/03/2024 13:43:47 174 Above high n ormal <=129 (mg/dL) Final LDL Cholesterol Reference Ra nges (mg/dL):
<70 Target level for high risk ASCVD patient
<100 Optimal for general population
100-129 Near optimal for general population
130-159 Borderline high
160-189 High
>=190 Very high Performing Location [facility] - [address] [facility] [address]
[2024-08-14] MEDS: ACETAMINOPHEN 500 MG TAB PO SCH (06:45)
[2024-08-14] MEDS: GABAPENTIN 300 MG CAP PO SCH (06:45)
[2024-08-14] MEDS: LR 15ML/HR IV SCH (06:45)
[2024-08-14] MEDS: CeleBREX 200 MG CAP PO SCH (06:45)
[2024-08-14] MEDS ORDERED: ONDANSETRON INJ 2 MG/ML 2 ML VIAL ONE (06:53)
[2024-08-14] MEDS ORDERED: LIDOCAINE 2% 2 ML VIAL/AMP(20MG/ML) INFIL ONE (06:53)
[2024-08-14] MEDS ORDERED: ROCURONIUM BROMIDE 10 MG/ML 5 ML VIAL IV ONE (06:53)
[2024-08-14] MEDS ORDERED: PROPOFOL IV EMULSION 10 MG/ML 20 ML VIAL IV ONE (06:53)
[2024-08-14] MEDS ORDERED: DEXAMETHASONE SOD INJ 4 MG/ML VIAL ONE (06:53)
[2024-08-14] MEDS ORDERED: MIDAZOLAM HCL 1 MG/ML 2ML VIAL ONE (06:54)
[2024-08-14] MEDS ORDERED: HYDROmorphone INJ 2 MG/ML SYR/VIAL ONE (06:54)
[2024-08-14] MEDS ORDERED: fentaNYL citrate PF 100 MCG/2 ML VIAL ONE (06:54)
[2024-08-14] MEDS ORDERED: PHENYLEPHRINE HCL 10 MG/ML VIAL ONE (07:02)
[2024-08-14] MEDS ORDERED: HYDROmorphone INJ 1 MG/ML SYRINGE IV PRN ×2 (07:06→13:21)
[2024-08-14] MEDS ORDERED: ONDANSETRON INJ 2 MG/ML 2 ML VIAL IV PRN ×2 (07:06→13:21)
[2024-08-14] MEDS ORDERED: LABETALOL HCL IV 5 MG/ML 20ML IV PRN (07:06)
[2024-08-14] MEDS ORDERED: ATROPINE SULFATE 0.1 MG/ML 10ML SYR IV PRN (07:06)
[2024-08-14 07:10] LABS: Partial Thromboplastin Time 28 Seconds (21-31); Prothrombin Time 11.3 Seconds (9.0-12.0)
--- NOTE | 2024-08-14 07:36 | History & Physical Bridge Note ---
Date of Service August 14, 2024 History & Physical Bridge Note I have examined the patient, reviewed the History & Physical and in the interval since the performance of the History & Physical I have noted the following changes of clinical significance: no changes noted
--- NOTE | 2024-08-14 07:38 | History & Physical Report ---
Date of Service August 14, 2024 Assessment & Plan (1) Lumbosacral spondylosis with radiculopathy: Plan: L4-L5 decompression and fusion History of Present Illness Chief Complaint: Back and leg pain Primary Care Provider: Wil Bailey MD This is a 79-year-old male presents chronic persistent back and leg pain and failing course of nonoperative care is here for surgical intervention. Allergies Allergy/AdvReac Type Severity Reaction Status Date / Time Dtwokqo-UOW-QgY Reductase Allergy Unknown Muscle Verified 08/14/24 06:27 Inhibitor aches [Wbdmkzn-Dss-Thc Reductase Inhibitor] flecainide AdvReac Severe Severe Verified 08/14/24 06:27 bradycardia Home Medications Medication Instructions Recorded Confirmed Type acetaminophen 500 mg tablet 500 mg PO BID PRN Pain 07/18/24 08/14/24 History aspirin 81 mg capsule 81 mg PO QAM 07/18/24 08/14/24 History diltiazem HCl 120 mg capsule,24 120 mg PO QAM 07/18/24 08/14/24 History hr,extended release famotidine 20 mg tablet 20 mg PO QPM 07/18/24 08/14/24 History fenofibrate micronized 43 mg 43 mg PO QAM 07/18/24 08/14/24 History capsule furosemide 20 mg tablet 20 mg PO QAM 07/18/24 08/14/24 History icosapent ethyl 1 gram capsule 2 g PO BID 07/18/24 08/14/24 History (Vascepa) levothyroxine 75 mcg tablet 75 mcg PO QAM 07/18/24 08/14/24 History metoprolol succinate 100 mg 100 mg PO BID 07/18/24 08/14/24 History tablet,extended release 24 hr pantoprazole 40 mg tablet,delayed 40 mg PO QAM 07/18/24 08/14/24 History release rivastigmine tartrate 1.5 mg 1.5 mg PO BID 07/18/24 08/14/24 History capsule warfarin 5 mg tablet (Jantoven) 5 mg PO QAM 07/18/24 08/14/24 History omega-3 fatty acids 1,000 mg PO DAILY 08/14/24 08/14/24 History Past Med/Surg History Problem List (Updated 08/14/24 @ 07:38 by Jef Durbin DO) Lumbosacral spondylosis with radiculopathy Encounter for pre-operative examination CKD (chronic kidney disease), stage III (Chronic) HTN (hypertension) (Chronic) Hypothyroidism (Chronic) Dyslipidemia (Chronic) Medical History Atrial fibrillation and flutter CAD (coronary artery disease) stent x1 (2016) Chronic back pain Chronic kidney disease Degenerative disc disease Dementia Early stages (A&Ox3) Lives with son and ywurnfyw-gy-adz (son does have POA) Dyslipidemia Gastroparesis GERD (gastroesophageal reflux disease) History of COVID-19 ~2021: mild cold symptoms > resolved Hx of gastric ulcer ~ Hx of renal calculi Passed on own, no surgical intervention needed () Hypertension Hypothyroidism Osteoarthritis Pacemaker Implanted 2017, [employer] device Follows with Dr. Paz ([facility] [place] [facility]) Valvular heart disease s/p MV repair (2013) Echo 07/2023: There is a mitral valve bioprosthesis present. Significant mitral valve prosthesis stenosis/regurgitation is absent. Surgical History H/O hernia repair History of cardiac cath 2016 ([facility] [place]) History of cholecystectomy History of colonoscopy History of esophagogastroduodenoscopy (EGD) History of heart artery stent stent x1 (2016) S/P hip replacement Right? (unilateral) S/P mitral valve repair (2013) [facility] S/P placement of cardiac pacemaker (2017) Status post medial meniscus repair Per records Family History Other No family history of adverse response to anesthesia Social History Smoking Status: Never smoker Second Hand Exposure: No; Do You Dip or Chew Tobacco: No; Tobacco Cessation Education Requested by Patient: No Hx Alcohol Use: No Hx Substance Use: No Preferred Language: Sinhala Communication Ability: Effective Commodity Broker Required: No Beliefs That Will Affect Care: None Current Living Situation: Family Other Information That Helps Us Care for You: No Assistive Devices: Denture - Upper, Glasses and Hearing Aid - Bilateral Assistive Devices Comment: partial lower Physical Exam Physical Exam: Patient is alert and oriented heart regular rhythm Lungs clear Results & Data Results & Data Vital Signs (Past 12 Hours) Vital Signs Temp Pulse Resp BP Pulse Ox O2 Del Method 08/14/24 06:37 36.5 C 96 H 20 148/89 H 97 Room Air
[2024-08-14] MEDS: ceFAZolin 2000MG 2,000 MG/15 ML SYR IV SCH ×2 (07:50→17:41)
[2024-08-14] MEDS: BUPIVACAINE/EPINEPHRINE 0.25% 1:200,000 30 ML VIAL ONE (08:36)
[2024-08-14] MEDS: ceFAZolin 330 MG/ML 1 GM VIAL ONE (08:37)
[2024-08-14] MEDS ORDERED: SUGAMMADEX SODIUM 200 MG/2 ML VIAL IV ONE (09:04)
[2024-08-14] MEDS: FLOSEAL HEMOSTATIC MATRIX 10ML TOP ONE (09:19)
--- NOTE | 2024-08-14 09:24 | Operative Report ---
Post Operative Report Pre & Post Diagnosis Operation Date: 08/14/24 07:45 Pre-Op Diagnosis: #1 lumbosacral spondylosis with radiculopathy #2 lumbar stenosis with neurogenic claudication Post-Op Diagnosis: Same I identified the patient and participated in the time-out.: Yes Procedure Operation Date: 08/14/24 07:45 Actual Procedures Interbody fusion #1 lumbar decompression bilaterally facetectomies and foraminotomies L3-L4 L4-5. #2 posterior spinal fusion L4-5. #3 placement posterior instrumentation L4-5. 4. Interbody fusion L4-5 . #5 placement of Spira 14 x 26 mm x 2 at L4-5. #6 placement locally harvested morselized autograft posterior gutters. #7 placement fuse collagen sponge combined with Koros bone graft in the posterior lateral gutters and os design interbody space. #8 for strep placed over the exposed dura. Surgeon Jef Durbin, Vmware Architect Domenica Shell Estimated Blood Loss 50 Findings Consistent with Post-Op Diagnosis Specimens None Indications This is an 79-year-old male presents publish diagnosis of failing course of nonoperative care is here for surgical invention. Description of Procedure Patient is met with identified and forms obtained. Patient was then taken to the operative suite underwent intubation placed in a prone position on the Ja Yonesson table atop the Edouard frame. All bony prominences well-padded eyes inspected to ensure no external pressure placed upon them. This point lumbar spine is prepped and draped in a sterile fashion. Sharp dissection with the assistance of Bovie cautery performed down to and exposing the lamina transverse processes of L4-L5. From caudal to cephalad fashion complete laminectomy of L4 was performed including bilateral medial facetectomies and foraminotomies addressing severe subarticular and foraminal stenosis. This followed by partial laminectomy of L3 with bilateral medial facetectomies to address subarticular stenosis. Pedicle screws were then placed in L4-5 bilaterally with assistance of fluoroscopy in the proper size torres placed. By way of transforaminal approach and right a discectomy of L4-5 was performed endplates guarded distal cortical bleeding bone and a 14 x 26 mm spiral cage filled with os design bone graft tapped in position. Then proceeded to the transforaminal region on the left. Again discectomy performed endplates guarded to subcortical bleeding bone and a second 14 x 26 mm spiral cage filled with os design tapped in position. The rods were then compressed locked into final position bilaterally. The transverse processes of L4-5 burred to subcortical the bone. Infuse collagen sponge, with Koros and local autograft placed in the posterior gutters. Versa wrap placed over the exposed dura. 15 round DANIEL drain inserted. The incision was then closed with 1 Vicryl fascia 2-0 Vicryl subcutaneously and 4 Monocryl for final closure. Steri-Strips sterile dressing placed. Patient waken taken PACU stable condition. Please note spinal cord monitoring was utilized out the procedure no changes noted. Lastly Domenica Shell was present at the entire surgery and while the patient positioning complex portion of the surgery and final skin closure. I attest to the content of the Intraoperative Record and any orders documented therein. Any exceptions are noted below.
--- NOTE | 2024-08-14 09:56 | Fluoroscopy Report ---
FL lumbar spine 2-3V CLINICAL HISTORY: L4-L5 DECOMPRESSION AND FUSION COMPARISON STUDY: None. FLUOROSCOPY TIME: 13 seconds. Ka,r: 11.25 mGy FLUOROSCOPIC IMAGES: 2 FINDINGS: Fluoroscopy was provided during L4-L5 discectomy with decompression and bilateral pedicle s crew fusion. Hardware is intact. There are no unexpected radiopaque foreign bodies. IMPRESSION: Fluoroscopy provided during L4-L5 decompression and fusion. ACT 112: Negative or not required by law. Electronically signed by: Paluino Patel M.D. 08/14/2024 9:54 AM
--- NOTE | 2024-08-14 10:36 | Anesthesiology Progress Note ---
Date of Service August 14, 2024 Anesthesia Post Procedure Vital Signs Vital Signs: Temp Pulse Pulse Resp BP Pulse Ox O2 Del Method 08/14/24 10:30 87 16 106/62 95 Nasal Cannula 08/14/24 10:15 82 14 107/72 94 Nasal Cannula 08/14/24 10:10 36.4 C L 87 15 105/61 94 Nasal Cannula 08/14/24 10:00 87 15 109/60 95 Nasal Cannula 08/14/24 09:50 86 14 104/72 95 Oxymask 08/14/24 09:45 109/72 08/14/24 09:40 81 14 97/69 L 100 Oxymask 08/14/24 09:32 36.1 C L 86 12 101/67 97 Oxymask 08/14/24 06:37 36.5 C 96 H 20 148/89 H 97 Room Air O2 Flow Rate 08/14/24 10:30 2 08/14/24 10:15 2 08/14/24 10:10 2 08/14/24 10:00 2 08/14/24 09:50 3 08/14/24 09:45 08/14/24 09:40 12 08/14/24 09:32 12 08/14/24 06:37 Transfer of Care Handoff Completed per policy Notes Mental Status: alert / awake / arousable Patient Amnestic to Procedure: Yes Nausea / Vomiting: adequately controlled Pain: adequately controlled Airway Patency, RR, SpO2: stable & adequate BP & HR: stable & adequate Hydration State: stable & adequate Anesthetic Complications: no major complications apparent
[2024-08-14] MEDS ORDERED: NALOXONE HCL 0.4 MG/1 ML VIAL/CARP IV PRN (13:21)
[2024-08-14] MEDS ORDERED: SOD PHOSPHATE/SOD BIPHOSPHATE ENEMA 132 ML BTL PR PRN (13:21)
[2024-08-14] MEDS ORDERED: PROMETHAZINE 12.5 MG/50.5 ML BAG IV PRN (13:21)
[2024-08-14] MEDS ORDERED: ONDANSETRON 4 MG OD TAB PO PRN (13:21)
[2024-08-14] MEDS ORDERED: ALUMINUM/MAGNESIUM SUSP 30 ML UDC PO PRN (13:21)
[2024-08-14] MEDS ORDERED: FAMOTIDINE 20 MG TAB PO PRN (13:21)
[2024-08-14] MEDS ORDERED: DO NOT ADMINISTER FLU VACCINE PRN (13:21)
[2024-08-14] MEDS ORDERED: HYDROmorphone INJ 0.5 MG/0.5 ML SYR IV PRN (13:21)
[2024-08-14] MEDS ORDERED: hydrOXYzine HCl 25 MG TAB PO PRN (13:21)
[2024-08-14] MEDS ORDERED: ACETAMINOPHEN 1,000 MG/100 ML VIAL IV PRN (13:21)
[2024-08-14] MEDS ORDERED: DO NOT ADMINISTER PNEUMOCOCCAL VACCINE PRN (13:21)
[2024-08-14] MEDS ORDERED: LORazepam 2 MG/1 ML VIAL IV PRN (13:21)
[2024-08-14] MEDS ORDERED: bisacodyL 10 MG SUPP PR PRN (13:21)
[2024-08-14] MEDS ORDERED: diphenhydrAMINE Capsule 25 MG CAP PO PRN (13:21)
[2024-08-14] MEDS ORDERED: MAGNESIUM HYDROXIDE SUSP 30 ML UDC PO PRN (13:21)
[2024-08-14] MEDS ORDERED: METOCLOPRAMIDE HCL INJ 5 MG/ML 2 ML VIAL IV PRN (13:21)
[2024-08-14] MEDS ORDERED: LORazepam 0.5 MG TAB PO PRN (13:21)
[2024-08-14] MEDS ORDERED: oxyCODONE HCL IR 5 MG TAB (IMMEDIATE RELEASE) PO PRN (13:21)
[2024-08-14] MEDS: LR 60ML/HR IV SCH (13:22)
--- NOTE | 2024-08-14 13:49 | Hospitalist Consultation ---
Date of Consultation August 14, 2024 Assessment & Plan (1) Lumbosacral spondylosis with radiculopathy: (2) S/P lumbar spine operation: Plan Vikram Burris is an 79y/o M with PMHx significant for HLD, HTN, hypothyroidism, COPD/centrilobular emphysema, CAD, bioprosthetic mitral valve replacement in 2012, persistent atrial fibrillation/flutter anticoagulated on warfarin, SSS s/p pacemaker, placement, HFpEF [EF = 55-59%; 07/2023], CKD stage IIIb, vitamin D deficiency, chronic low back pain, mild dementia and EASTON who is being seen for routine postoperative medical management after undergoing elective L4-L5 decompression and fusion for management of lumbosacral spondylosis with radiculopathy performed by Dr. Durbin on 08/14/2024. Lumbosacral Spondylosis with Radiculopathy S/P Surgery: POD #0 s/p L4-L5 decompression and fusion with Dr. Durbin on 08/14/2024. EBL: 50mL & Pre-Op Hgb: 13 [as of 07/27/2024] Per ortho for pain control, wound care, anticoagulation and activities. Continue incentive spirometry, PT/OT when appropriate as per ortho team. Monitor H/H for acute blood loss anemia and transfuse blood products PRN. Persistent AFib/Flutter on Coumadin, HTN: INR 1.0 preoperatively, holding warfarin for now postoperatively as per primary service. Continue ASA 81mg daily as per primary service. Plan to resume warfarin POONAM via discretion of primary service. Mild tachycardia noted postoperatively. BP stable. Continue diltiazem, metoprolol succinate. Hold Lasix for now. Monitor PT/INR. HLD, CAD: Continue statin, fenofibrate and Vascepa. SSS S/P Pacemaker Placement, HFpEF Bioprosthetic MV Replacement in 2012: Follows with Dr. Paz at [facility]. Monitor for signs/symptoms of volume overload. Resting echocardiogram from 07/2023 --> LVEF = 55-59%, reduced RV systolic function. Hold Lasix for now 2/2 relative hypotension. Other Chronic Medical Conditions: Mild Dementia - Continue Exelon. A&Ox3 on exam. GERD - Continue PPI. Hypothyroidism - Continue levothyroxine. Thank you for this consultation. We will follow the patient with you during their hospital stay. You can [facility] a [facility] via [employer]. 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 Code Status: FULL CODE PCP: Gregory Rodriguez MD Disposition: Currently admitted in Med/Surg - discharge planning as per primary service. Patient seen in collaboration with Dr. Pinzon. Please see addendum. I spent a total of 40 minutes coordinating, documenting, and providing care for this patient excluding time spent in the performance of separately billed services or time spent by another provider/QHP. This included personally reviewing all current laboratories and imaging studies, medical reconciliation, outpatient chart review and discussion with specialists. This chart was completed in part utilizing Speech Voice Recognition Software. Grammatical errors, random word insertions, pronoun errors, and incomplete sentences are an occasional consequence of this system due to software limitations, ambient noise, and hardware issues. Any formal questions or concerns about the content, text, or information contained within the body of this dictation should be directly addressed to the provider for clarification. Supervising Physician Co-Signing Physician Notes Patient is an 79-year-old male with history of bioprosthetic mitral valve replacement, coronary artery disease, atrial fibrillation on anticoagulation with Coumadin and other medical problems was consulted for postop medical man agement. Patient underwent significant surgery by Dr. Durbin. Patient is doing well postoperatively. He denies any significant pain at the surgical site. He also denies any chest pain, dyspnea, nausea, vomiting, abdominal pain. Patient rates pain continues. Physical Exam: Vitals signs as noted above General Appearance:Moderately built and nourished, no apparent distress Head: normocephalic, Atraumatic Eyes: normal inspection, EOMI Neck: supple, Trachea midline Respiratory/Chest: Normal breath sounds, CTA, No accessory muscle use Cardiovascular: Irregularly irregular, faint murmur Abdomen/GI:Soft, Non tender, Bowel sounds present Extremities/Musculoskeletal:normal inspection, no edema Back: Lumbar surgical site in dressing, + drain l Neurologic/Psych:AAOX3, grossly no focal neurological deficits Skin: normal color, warm Lumbosacral spondylosis with radiculopathy Lumbar stenosis with neurogenic claudication S/P lumbar decompression, fusion surgery by Dr. Durbin Monitor for postop anemia Pain control, activity, wound care, DVT prophylaxis as per primary team Bowel regimen to prevent constipation Incentive spirometry Bioprosthetic mitral valve replacement Atrial fibrillation Resume Coumadin as soon as possible Monitor INR I personally interviewed and examined the patient at bedside. I have reviewed the advanced practitioner's documentation on the date of service referred in note and agree with plan. Patient's care is coordinated with Amy Muprhy PA-C. Please refer to the documentation above for details of patient's presentation and for discussion of other issues. I spent a total [id number] coordinating, documenting, and providing care for this patient excluding time spent in the performance of separately billed services or time spent by another provider/QHP. History of Present Illness Reason for Consultation: Routine Postoperative Medical Management Requesting Physician: Jef Durbin DO Attending Physician: Jef Durbin DO History of Present Illness Vikram Burris is an 79y/o M with PMHx significant for HLD, HTN, hypothyroidism, COPD/centrilobular emphysema, CAD, bioprosthetic mitral valve replacement in 2012, permanent atrial fibrillation anticoagulated on warfarin, SSS s/p pacemaker, placement, HFpEF [EF = 55-59%; 07/2023], CKD stage IIIb, vitamin D deficiency, chronic low back pain, mild dementia and EASTON who is being seen for routine postoperative medical management after undergoing elective L4-L5 decompression and fusion for management of lumbosacral spondylosis with radiculopathy performed by Dr. Durbin on 08/14/2024. History obtained from the patient, family at bedside and associated chart review. Patient seen at bedside with Dr. Pinzon in room N378-2. Patient feeling well postoperatively. Pain is well-controlled. Denies any chest pain, SOB, abdominal pain or nausea/vomiting. Notes his usual warfarin dosing is 5mg daily - currently on hold 2/ operation. Saturating well on RA. Slightly tachycardic but denies any palpitations. Has known history of permanent atrial fibrillation. He has not yet passed gas postoperatively. DANIEL drain x 1 intact. Patient offers no complaints at this time. He has mild dementia and lives at home with his son, Ryan. Allergies Allergy/AdvReac Type Severity Reaction Status Date / Time Seikdjz-KET-SjO Reductase Allergy Unknown Muscle Verified 08/14/24 06:27 Inhibitor aches [Vnrpabu-Qpv-Gut Reductase Inhibitor] flecainide AdvReac Severe Severe Verified 08/14/24 06:27 bradycardia Home Medications Medication Instructions Recorded Confirmed Type acetaminophen 500 mg tablet 500 mg PO BID PRN Pain 07/18/24 08/14/24 History aspirin 81 mg capsule 81 mg PO QAM 07/18/24 08/14/24 History diltiazem HCl 120 mg capsule,24 120 mg PO QAM 07/18/24 08/14/24 History hr,extended release famotidine 20 mg tablet 20 mg PO QPM 07/18/24 08/14/24 History fenofibrate micronized 43 mg 43 mg PO QAM 07/18/24 08/14/24 History capsule furosemide 20 mg tablet 20 mg PO QAM 07/18/24 08/14/24 History icosapent ethyl 1 gram capsule 2 g PO BID 07/18/24 08/14/24 History (Vascepa) levothyroxine 75 mcg tablet 75 mcg PO QAM 07/18/24 08/14/24 History metoprolol succinate 100 mg 100 mg PO BID 07/18/24 08/14/24 History tablet,extended release 24 hr pantoprazole 40 mg tablet,delayed 40 mg PO QAM 07/18/24 08/14/24 History release rivastigmine tartrate 1.5 mg 1.5 mg PO BID 07/18/24 08/14/24 History capsule warfarin 5 mg tablet (Jantoven) 5 mg PO QAM 07/18/24 08/14/24 History omega-3 fatty acids 1,000 mg PO DAILY 08/14/24 08/14/24 History Patient History Medical History Pacemaker Implanted 2017, [employer] device Follows with Dr. Paz ([facility]) Valvular heart disease s/p MV repair (2013) Echo 07/2023: There is a mitral valve bioprosthesis present. Significant mitral valve prosthesis stenosis/regurgitation is absent. CAD (coronary artery disease) stent x1 (2016) Osteoarthritis Degenerative disc disease Chronic back pain Hx of renal calculi Passed on own, no surgical intervention needed () Hx of gastric ulcer ~ Gastroparesis GERD (gastroesophageal reflux disease) Dementia Early stages (A&Ox3) Lives with son and [id number] (son does have POA) History of COVID-19 ~2021: mild cold symptoms > resolved Dyslipidemia Hypothyroidism Hypertension Chronic kidney disease Atrial fibrillation and flutter Surgical History Status post medial meniscus repair Per records S/P hip replacement Right? (unilateral) History of esophagogastroduodenoscopy (EGD) History of colonoscopy H/O hernia repair History of cholecystectomy History of heart artery stent stent x1 (2017) History of cardiac cath 2017 ([facility]) S/P placement of cardiac pacemaker (2017) S/P mitral valve repair (2013) [facility] Family History Other No family history of adverse response to anesthesia Social History Smoking Status: Never smoker Second Hand Exposure: No; Do You Dip or Chew Tobacco: No; Tobacco Cessation Education Requested by Patient: No Hx Alcohol Use: No Hx Substance Use: No Preferred Language: Mauritian Communication Ability: Effective Screen Room Operator Required: No Beliefs That Will Affect Care: None Current Living Situation: Family Other Information That Helps Us Care for You: No Assistive Devices: Denture - Upper, Glasses and Hearing Aid - Bilateral Assistive Devices Comment: partial lower Review of Systems Review of Systems: At least ten systems reviewed and negative, except as noted in the HPI. Physical Exam Physical Exam: Please refer to Dr. Pinzon's addendum for physical examination findings. Results & Data Results & Data Vital Signs (Past 12 Hours) Vital Signs Temp Pulse Pulse Resp BP Pulse Ox O2 Del Method 08/14/24 13:31 36.3 C L 109 H 18 112/74 97 Nasal Cannula 08/14/24 13:00 93 H 14 110/65 97 Nasal Cannula 08/14/24 12:30 37.2 C 93 H 15 125/71 97 Nasal Cannula 08/14/24 12:00 83 15 105/64 98 Nasal Cannula 08/14/24 11:30 87 15 107/71 95 Nasal Cannula 08/14/24 11:15 36.3 C L 87 15 102/72 96 Nasal Cannula 08/14/24 11:00 92 H 16 96/70 L 96 Nasal Cannula 08/14/24 10:45 87 17 93/73 L 98 Nasal Cannula 08/14/24 10:30 87 16 106/62 95 Nasal Cannula 08/14/24 10:15 82 14 107/72 94 Nasal Cannula 08/14/24 10:10 36.4 C L 87 15 105/61 94 Nasal Cannula 08/14/24 10:00 87 15 109/60 95 Nasal Cannula 08/14/24 09:50 86 14 104/72 95 Oxymask 08/14/24 09:45 109/72 08/14/24 09:40 81 14 97/69 L 100 Oxymask 08/14/24 09:32 36.1 C L 86 12 101/67 97 Oxymask 08/14/24 06:37 36.5 C 96 H 20 148/89 H 97 Room Air O2 Flow Rate 08/14/24 13:31 2 08/14/24 13:00 2 08/14/24 12:30 2 08/14/24 12:00 2 08/14/24 11:30 2 08/14/24 11:15 2 08/14/24 11:00 2 08/14/24 10:45 2 08/14/24 10:30 2 08/14/24 10:15 2 08/14/24 10:10 2 08/14/24 10:00 2 08/14/24 09:50 3 08/14/24 09:45 08/14/24 09:40 12 08/14/24 09:32 12 08/14/24 06:37 Diagnostic Findings Lumbar Spine X-Ray 08/14/24 07:45 FL lumbar spine 2-3V CLINICAL HISTORY: L4-L5 DECOMPRESSION AND FUSION COMPARISON STUDY: None. FLUOROSCOPY TIME: 13 seconds. Ka,r: 11.25 mGy FLUOROSCOPIC IMAGES: 2 FINDINGS: Fluoroscopy was provided during L4-L5 discectomy with decompression and bilateral pedicle screw fusion. Hardware is intact. There are no unexpected radiopaque foreign bodies. IMPRESSION: Fluoroscopy provided during L4-L5 decompression and fusion. ACT 112: Negative or not required by law. Electronically signed by: Paulino Patel M.D. 08/14/2024 9:54 AM Medications Administered Acetaminophen (Acetaminophen 500 Mg Tab) 1,000 mg PO PREOP ROLLY Stop: 08/14/24 18:00 Last Admin: 08/14/24 06:45 Dose: 1,000 mg Documented By: JENNY Celecoxib (Celebrex 200 Mg Cap) 200 mg PO PREOP ROLLY Stop: 08/14/24 18:00 Last Admin: 08/14/24 06:45 Dose: 200 mg Documented By: JENNY Gabapentin (Gabapentin 300 Mg Cap) 300 mg PO PREOP ROLLY Stop: 08/14/24 18:00 Last Admin: 08/14/24 06:45 Dose: 300 mg Documented By: JENNY Lactated Ringer's (Lr) 1,000 mls @ 15 mls/hr IV .Q24H ROLLY Stop: 08/15/24 05:59 Last Infusion: 08/14/24 07:48 Dose: Infused Documented By: Admin: 08/14/24 06:45 Dose: 15 mls/hr Documented By: JENNY Lactated Ringer's (Lr) 1,000 mls @ 60 mls/hr IV .[id number] ROLLY Stop: 08/14/24 22:39 Last Admin: 08/14/24 13:22 Dose: Not Given Documented By: LACIE Cefazolin Sodium (Ancef 2000mg) 2,000 mg in 15 mls @ 3.75 mls/min IV PREOP ROLLY; Protocol Stop: 08/14/24 18:00 Last Admin: 08/14/24 07:50 Dose: 3.75 mls/min Documented By: CEE Discontinued Medications Bupivacaine HCl/Epinephrine Bitart (Bupivacaine/Epinephrine 0.25% 1:200,000 30 Ml Vial) Confirm Administered Dose 30 ml .ROUTE .STK-MED ONE Stop: 08/14/24 06:56 Last Admin: 08/14/24 08:36 Dose: 25 ml Documented By: HALEIGH Cefazolin Sodium (Cefazolin 330 Mg/Ml 1 Gm Vial) Confirm Administered Dose 990 mg .ROUTE .STK-MED ONE Stop: 08/14/24 06:56 Last Admin: 08/14/24 08:37 Dose: 990 mg Documented By: HALEIGH Miscellaneous ( Floseal Hemostatic Matrix 10ml) 20 ml TOP ONCE ONE Stop: 08/14/24 08:38 Last Admin: 08/14/24 09:19 Dose: 19 ml Documented By: HALEIGH
[2024-08-14] MEDS: VASCEPA~ORDER AWAITING ACTION SCH (14:33)
[2024-08-14] MEDS ORDERED: Nursing to Pharmacy Communication SCH (15:45)
[2024-08-14] MEDS: METOPROLOL SUCC 50MG EXT REL TAB PO SCH ×2 (15:49→20:24)
[2024-08-14] MEDS: FAMOTIDINE 20 MG TAB PO SCH (20:25)
[2024-08-14] MEDS: RIVASTIGMINE TARTRATE 1.5 MG CAP PO SCH (20:25)
[2024-08-14] MEDS: DOCUSATE SODIUM/SENNA 50/8.6MG TAB PO SCH (20:30)
[2024-08-15] MEDS: LEVOTHYROXINE SODIUM 75 MCG TABLET PO SCH (05:31)
[2024-08-15] MEDS: POLYETHYLENE (MIRALAX) 17 GM PACK PO SCH (05:31)
[2024-08-15 07:15] LABS: Basophils # (auto) 0.03 K/uL (0.00-0.20); Basophils % (auto) 0.2 %; Hematocrit (blood only) 37.5 % (42.0-52.0); Immature Granulocytes # (auto) 0.15 K/uL (0.01-0.20); Immature Granulocytes % (auto) 0.9 %; Lymphocytes # (auto) 0.93 K/uL (1.20-3.40); Lymphocytes % (auto) 5.3 %; Mean Corpuscular Hemoglobin 31.3 pg (25.0-34.0); Mean Corpuscular Volume 97.7 fL (80.0-100.0); Mean Platelet Volume 9.8 fL (9.4-12.4); Monocytes # (auto) 1.14 K/uL (0.11-0.59); Monocytes % (auto) 6.5 %; Neutrophils # (auto) 15.26 K/uL (1.40-6.50); Neutrophils % (auto) 87.1 %; Platelet Count 262 K/uL (130-400); RDW Coefficient of Variation 14.1 % (11.5-14.5); RDW Standard Deviation 50.9 fL (36.4-46.3); Red Blood Count 3.84 M/uL (4.70-6.10); White Blood Count 17.51 K/ul (4.8-10.8)
[2024-08-15 07:41] LABS: BUN Creatinine Ratio 17.4 (10-20); Calcium 9.2 mg/dl (8.6-10.3); Creatinine Clr Calc Pharmacy 39.2 ml/min; Magnesium 1.8 mg/dl (1.7-2.4); Potassium 4.8 mmol/L (3.5-5.1)
[2024-08-15 07:49] LABS: Prothrombin Time 11.3 Seconds (9.0-12.0)
[2024-08-15] MEDS ORDERED: FUROSEMIDE 20 MG TAB PO SCH (09:00)
[2024-08-15] MEDS: dilTIAZem HCL 120 MG CAPCR PO SCH (09:53)
[2024-08-15] MEDS: ASPIRIN 81 MG ECTAB PO SCH (09:53)
[2024-08-15] MEDS: FENOFIBRATE NANOCRYSTALLIZED 48 MG TABLET PO SCH (09:54)
[2024-08-15] MEDS: PANTOprazole 40 MG TAB PO SCH (09:55)
[2024-08-15] MEDS: dexAMETHasone 6 MG in SYRINGE 0 ML IV SCH (10:20)
--- NOTE | 2024-08-15 12:03 | Orthopedic Progress Note ---
Date of Service August 15, 2024 Assessment & Plan (1) Lumbosacral spondylosis with radiculopathy: Plan: At this time we will initiate physical therapy monitor his DANIEL output hopefully discharge home in the next few days. Admission and Anticipated Discharge Date Admission Date: August 14, 2024 Subjective Patient's back pain is controlled leg symptoms improved. He denies any shortness of breath or chest pain. Physical Exam Physical Exam: On exam he is up and ambulating with a walker. Distracted testing. Results & Data Vital Signs (Past 12 Hours) Vital Signs Temp Pulse Pulse Pulse Resp BP Pulse Ox 08/15/24 11:38 36.4 C L 119 H 20 129/89 96 08/15/24 11:09 36.4 C L 119 H 18 128/81 93 08/15/24 09:25 121 H 118/77 08/15/24 07:05 36.4 C L 117 H 18 113/74 93 08/15/24 03:07 36.3 C L 117 H 17 114/74 92 O2 Del Method 08/15/24 11:38 Room Air 08/15/24 11:09 Room Air 08/15/24 09:25 08/15/24 07:05 Room Air 08/15/24 03:07 Room Air
--- NOTE | 2024-08-15 12:18 | Hospitalist Progress Note ---
Date of Service August 15, 2024 Assessment & Plan (1) Lumbosacral spondylosis with radiculopathy: (2) S/P lumbar spine operation: Plan Vikram Burris is an 79y/o M with PMHx significant for HLD, HTN, hypothyroidism, COPD/centrilobular emphysema, CAD, bioprosthetic mitral valve replacement in 2012, persistent atrial fibrillation/flutter anticoagulated on warfarin, SSS s/p pacemaker, placement, HFpEF [EF = 55-59%; 07/2023], CKD stage IIIb, vitamin D deficiency, chronic low back pain, mild dementia and EASTON who is being seen for routine postoperative medical management after undergoing elective L4-L5 decompression and fusion for management of lumbosacral spondylosis with rad iculopathy performed by Dr. Durbin on 08/14/2024. Lumbosacral Spondylosis with Radiculopathy S/P Surgery: POD #1 s/p L4-L5 decompression and fusion with Dr. Durbin on 08/14/2024. EBL: 50mL & Pre-Op Hgb: 13 [as of 07/27/2024] Per ortho for pain control, wound care, anticoagulation and activities. Continue incentive spirometry, PT/OT when appropriate as per ortho team. Monitor H/H for acute blood loss anemia and transfuse blood products PRN. AFib/Flutter on Coumadin HTN Continue diltiazem, metoprolol succinate. INR 1.0 preoperatively, holding warfarin for now postoperatively as per primary service. Continue ASA 81mg daily as per primary service. BP stable. Hold Lasix for now. Monitor PT/INR, warfarin currently on hold-Per Dr Durbin can resume tomorrow 08/16 based on INR Currently tachycardic postop, sinus with PACs on telemetry -EKG pending -trop pending PRN IV Lopressor 2.5mg for HR >120 HLD, CAD: Continue statin, fenofibrate and Vascepa. SSS S/P Pacemaker Placement, HFpEF Bioprosthetic MV Replacement in 2012: Follows with Dr. Paz at [facility]. Monitor for signs/symptoms of volume overload. Resting echocardiogram from 07/2023 --> LVEF = 55-59%, reduced RV systolic function. Hold Lasix for now 2/2 relative hypotension. Other Chronic Medical Conditions: Mild Dementia - Continue Exelon. A&Ox3 on exam. GERD - Continue PPI. Hypothyroidism - Continue levothyroxine. Thank you for this consultation. We will follow the patient with you during their hospital stay. You can [facility] via [employer]. 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 Code Status: FULL CODE PCP: Gregory Rodriguez MD Disposition: Currently admitted in Med/Surg - discharge planning as per primary service. Admission and Anticipated Discharge Date Admission Date: August 14, 2024 Subjective pt was seen with nursing and his son at bedside He denied acute concerns. Tachycardic Review of Systems Review of Systems: All systems reviewed & are unremarkable except as noted in Subjective Physical Exam Physical Exam: General: Alert, oriented. No acute distress Psych: Appropriate mood and affect Neuro: No gross deficits while sitting in chair HEENT: NC/AT CV: RRR Resp: Breath sounds clear bilaterally, no increased effort of breathing Abdomen:Soft, nontender Extremities: No edema in lower extremities bilaterally. Results & Data Results & Data Vital Signs (Past 12 Hours) Vital Signs Temp Pulse Pulse Pulse Resp BP Pulse Ox 08/15/24 11:38 36.4 C L 119 H 20 129/89 96 08/15/24 11:09 36.4 C L 119 H 18 128/81 93 08/15/24 09:25 121 H 118/77 08/15/24 07:05 36.4 C L 117 H 18 113/74 93 08/15/24 03:07 36.3 C L 117 H 17 114/74 92 O2 Del Method 08/15/24 11:38 Room Air 08/15/24 11:09 Room Air 08/15/24 09:25 08/15/24 07:05 Room Air 08/15/24 03:07 Room Air Diagnostic Findings Lumbar Spine X-Ray 08/14/24 07:45 FL lumbar spine 2-3V CLINICAL HISTORY: L4-L5 DECOMPRESSION AND FUSION COMPARISON STUDY: None. FLUOROSCOPY TIME: 13 seconds. Ka,r: 11.25 mGy FLUOROSCOPIC IMAGES: 2 FINDINGS: Fluoroscopy was provided during L4-L5 discectomy with decompression and bilateral pedicle screw fusion. Hardware is intact. There are no unexpected radiopaque foreign bodies. IMPRESSION: Fluoroscopy provided during L4-L5 decompression and fusion. ACT 112: Negative or not required by law. Electronically signed by: Paulino Patel M.D. 08/14/2024 9:54 AM
[2024-08-15] MEDS ORDERED: METOPROLOL TARTRATE 1 MG/ML VIAL IV PRN (17:26)
[2024-08-15] MEDS: icosapent ethyL 1 GM CAP PO SCH (20:07)
[2024-08-15] MEDS: MAGNESIUM SULFATE / D5W 1 GM/100 ML BAG IV ONE (21:15)
--- NOTE | 2024-08-15 22:18 | XRay Report ---
Exam(s): XR CXR 1 VIEW EXAM: XR Chest, 1 View CLINICAL HISTORY: Reason for exam: tachy. TECHNIQUE: Frontal view of the chest. COMPARISON: 02/25/2016 FINDINGS: Lungs: Atelectasis at the left base. Otherwise the lungs are clear. Pleural space: No pleural effusion. No pneumothorax. Heart: Cardiomegaly. Bones/joints: Status post median sternotomy. Vasculature: Atherosclerotic calcifications in the aortic arch. IMPRESSION: Atelectasis at the left base. Electronically signed by: Elmer Montes MD 08/15/24 22:17 PM
[2024-08-15] MEDS: SODIUM CHLORIDE 0.9% 1,000 ML IV ONE (22:28)
[2024-08-16] MEDS: ACETAMINOPHEN 500 MG TAB PO PRN (03:23)
[2024-08-16 06:24] LABS: Albumin Globulin Ratio 1.3 (0.9-2); Albumin Level 3.5 gm/dl (3.4-5.0); BUN Creatinine Ratio 20.6 (10-20); Bilirubin,Total 0.3 mg/dl (0.2-1.0); Calcium 8.9 mg/dl (8.6-10.3); Creatinine Clr Calc Pharmacy 35.1 ml/min; Globulin 2.7 gm/dl (2.5-4.0); Magnesium 2.2 mg/dl (1.7-2.4); Phosphorus 2.5 mg/dl (2.5-4.9); Potassium 4.7 mmol/L (3.5-5.1); Total Protein 6.2 gm/dl (6.0-8.3)
[2024-08-16 06:35] LABS: Troponin I High Sensitivity 91.4 pg/ml (0-20)
[2024-08-16 06:37] LABS: Basophils # (auto) 0.01 K/uL (0.00-0.20); Basophils % (auto) 0.1 %; Eosinophils # (auto) 0.01 K/uL (0.00-0.50); Eosinophils % (auto) 0.1 %; Hematocrit (blood only) 32.8 % (42.0-52.0); Hemoglobin 10.9 g/dl (14.0-18.0); Immature Granulocytes # (auto) 0.24 K/uL (0.01-0.20); Immature Granulocytes % (auto) 1.4 %; Lymphocytes # (auto) 1.23 K/uL (1.20-3.40); Lymphocytes % (auto) 7.1 %; Mean Corpuscular Hemoglobin 30.6 pg (25.0-34.0); Mean Corpuscular Hgb Conc 33.2 g/dL (32.0-36.0); Mean Corpuscular Volume 92.1 fL (80.0-100.0); Mean Platelet Volume 9.8 fL (9.4-12.4); Monocytes # (auto) 1.31 K/uL (0.11-0.59); Monocytes % (auto) 7.6 %; Neutrophils # (auto) 14.48 K/uL (1.40-6.50); Neutrophils % (auto) 83.7 %; Platelet Count 255 K/uL (130-400); RDW Coefficient of Variation 14.2 % (11.5-14.5); RDW Standard Deviation 48.7 fL (36.4-46.3); Red Blood Count 3.56 M/uL (4.70-6.10); White Blood Count 17.28 K/ul (4.8-10.8)
[2024-08-16 06:49] LABS: Prothrombin Time 10.7 Seconds (9.0-12.0)
--- NOTE | 2024-08-16 09:35 | Electrocardiogram Report ---
Test Reason : Blood Pressure : */* mmHG Vent. Rate : 115 BPM Atrial Rate : * BPM P-R Int : * ms QRS Dur : 94 ms QT Int : 324 ms P-R-T Axes : * 31 187 degrees QTcB Int : 448 ms Sinus tachycardia with 2nd degree A-V block (Mobitz I) Abnormal ECG When compared with ECG of 25-Feb-2016 12:29, Significant changes have occurred Confirmed by Mahesh Jones ([id number]) on 08/16/2024 9:34:50 AM Referred By: Jef Durbin Confirmed By: Mahesh Jones
--- NOTE | 2024-08-16 10:10 | Orthopedic Progress Note ---
Date of Service August 16, 2024 Assessment & Plan (1) Lumbosacral spondylosis with radiculopathy: Plan: At this time continue physical therapy. Monitor his DANIEL output. He would be safe for discharge from an orthopedic standpoint tomorrow. Admission and Anticipated Discharge Date Admission Date: August 14, 2024 Subjective Patient's back pain is controlled leg symptoms markedly improved. Physical Exam Physical Exam: Patient is in chair at the bedside. Is comfortable. Distracted testing. Results & Data Vital Signs (Past 12 Hours) Vital Signs Temp Pulse Pulse Resp BP Pulse Ox O2 Del Method 08/16/24 08:14 Room Air 08/16/24 08:00 36.6 C 65 18 120/83 96 Room Air 08/16/24 07:38 85 08/16/24 03:18 36.5 C 107 H 18 144/89 H 95 Room Air 08/15/24 23:51 112 H 08/15/24 23:34 36.5 C 76 18 111/64 96 Room Air 08/15/24 22:56 Room Air
[2024-08-16] MEDS: SODIUM CHLORIDE 0.9% 1,000 ML IV SCH (12:30)
--- NOTE | 2024-08-16 16:51 | Hospitalist Progress Note ---
Date of Service August 16, 2024 Assessment & Plan (1) Lumbosacral spondylosis with radiculopathy: (2) S/P lumbar spine operation: Plan Vikrma Burris is an 79y/o M with PMHx significant for HLD, HTN, hypothyroidism, COPD/centrilobular emphysema, CAD, bioprosthetic mitral valve replacement in 2012, persistent atrial fibrillation/flutter anticoagulated on warfarin, SSS s/p pacemaker, placement, HFpEF [EF = 55-59%; 07/2023], CKD stage IIIb, vitamin D deficiency, chronic low back pain, mild dementia and E[place] who is being seen for routine postoperative medical management after undergoing elective L4-L5 decompression and fusion for management of lumbosacral spondylosis with rad iculopathy performed by Dr. Durbin on 08/14/2024. #Lumbosacral Spondylosis with Radiculopathy S/P Surgery: POD #3 s/p L4-L5 decompression and fusion with Dr. Durbin on 08/14/2024. EBL: 50mL & Pre-Op Hgb: 13 [as of 07/27/2024] Plan: Per ortho for pain control, wound care, anticoagulation and activities. Continue incentive spirometry, PT/OT when appropriate as per ortho team. Monitor H/H for acute blood loss anemia and transfuse blood products PRN. #AFib/Flutter on Coumadin #HTN -Continue diltiazem, metoprolol succinate. -INR 1.0 preoperatively, held warfarin for now postoperatively as per primary service. -Continue ASA 81mg daily as per primary service. -BP stable. Plan: -restart warfarin today, no bridging given higher risk of bleed than stroke risk in brief period ([id number] score of 3 vs. had recent procedure Has BLED of 2-3) -Currently tachycardic postop, sinus with PACs on telemetry -PRN IV Lopressor 2.5mg for HR >120 #HLD, CAD: -Continue statin, fenofibrate and Vascepa. #SSS S/P Pacemaker Placement, HFpEF #Bioprosthetic MV Replacement in 2012: -Follows with Dr. Paz at [facility]. Monitor for signs/symptoms of volume overload. -Resting echocardiogram from 07/2023 --> LVEF = 55-59%, reduced RV systolic function. -Hold Lasix for now 2/2 relative hypotension. Other Chronic Medical Conditions: Mild Dementia - Continue Exelon. A&Ox3 on exam. GERD - Continue PPI. Hypothyroidism - Continue levothyroxine. Patient is medically stable for discharge from medical perspective. Feeding/fluids: regular Analgesia: tylenol/oxy Sedation: na Thromboprophylaxis: restart warfarin, prophylactic heparin Head up position: 30 degrees Ulcer prophylaxis: na Glycemic control: na Spontaneous breathing trial: na Bowel care: na Indwelling catheter removal: na Deescalation of antibiotics: na I spent a total of 35 minutes in direct patient care, including [id number]-[id number] time with the patient and/or family, reviewing medical records, ordering and reviewing diagnostic tests, and coordinating care with other healthcare providers. This time includes: history taking, physical examination, medical decision making, counseling, ECG interpretation, imaging interpretation, lab interpretation, orders, and education, excluding time spent in the performance of separately billed services. Admission and Anticipated Discharge Date Admission Date: August 14, 2024 Subjective Patient seen and examined at bedside. Patient is doing well today. He states whenever pain he on postop is now gone. Looking forward to hopefully going home soon. Review of Systems Review of Systems: CONSTITUTIONAL: Patient denies fevers, chills, sweats and weight changes. EYES: Patient denies any visual symptoms. EARS, NOSE, AND THROAT: No difficulties with hearing. No symptoms of rhinitis or sore throat. CARDIOVASCULAR: Patient denies chest pains, palpitations, orthopnea and paroxysmal nocturnal dyspnea. RESPIRATORY: No dyspnea on exertion, no wheezing or cough. GI: No nausea, vomiting, diarrhea, constipation, abdominal pain, hematochezia or melena. : No urinary hesitancy or dribbling. No nocturia or urinary frequency. No abnormal urethral discharge. MUSCULOSKELETAL: No myalgias or arthralgias. NEUROLOGIC: No chronic headaches, no seizures. Patient denies numbness, tingling or weakness. PSYCHIATRIC: Patient denies problems with mood disturbance. No problems with anxiety. ENDOCRINE: No excessive urination or excessive thirst. DERMATOLOGIC: Patient denies any rashes or skin changes. Physical Exam Physical Exam: Gen: A&O 3 NAD HEENT: NCAT, EOMI, not icteric. External ears normal. No rhinorrhea. Moist mucous membranes. Neck: Supple, full range of motion, no observable masses, No meningeal sign. Lungs: No Respiratory distress. CV: RRR, no edema. Abdomen: Soft, nondistended, No rebound tenderness. MSK: No joint swelling, no redness. Skin: No rashes, petechiae, lesions. Normal color per patient. s/p spinal procedure Neuro: Normal Gait, Grossly intact. Psych: Appropriate for situation. Results & Data Results & Data Vital Signs (Past 12 Hours) Vital Signs Temp Pulse Pulse Resp BP Pulse Ox O2 Del Method 08/16/24 15:44 36.4 C L 62 18 120/65 96 Room Air 08/16/24 13:44 61 08/16/24 13:21 99 08/16/24 12:25 36.4 C L 84 18 123/55 L 94 Room Air 08/16/24 08:14 Room Air 08/16/24 08:00 36.6 C 65 18 120/83 96 Room Air 08/16/24 07:38 85 Laboratory Results - Personally interpreted, noted leukocytosis which is probably reactive, elevated creatinine in the setting of postop Medications Administered Acetaminophen (Acetaminophen 500 Mg Tab) 1,000 mg PO Q8H PRN PRN Reason: MILD Pain Scale 1,2,3 & Pre PT Stop: 09/13/24 13:20 Last Admin: 08/16/24 03:23 Dose: 1,000 mg Documented By: MICHAEL Aspirin (Aspirin 81 Mg Ectab) [facility] [place] Stop: 09/14/24 08:59 Last Admin: 08/16/24 08:41 Dose: 81 mg Documented By: Admin: 08/15/24 09:53 Dose: 81 mg Documented By: MICHOACANO Co-signed By: PRATIBHA Diltiazem HCl (Diltiazem Hcl 120 Mg Capcr) 120 [facility] [place] Stop: 09/14/24 08:59 Last Admin: 08/16/24 08:40 Dose: 120 mg Documented By: Admin: 08/15/24 09:53 Dose: 120 mg Documented By: MICHOACANO Co-signed By: PRATIBHA Famotidine (Famotidine 20 Mg Tab) 20 mg PO QPM [facility] Stop: 09/13/24 20:59 Last Admin: 08/15/24 20:07 Dose: 20 mg Documented By: Admin: 08/14/24 20:25 Dose: 20 mg Documented By: MONA Fenofibrate (Fenofibrate Nanocrystallized 48 Mg Tablet) 48 mg PO QAM ROLLY Stop: 09/14/24 08:59 Last Admin: 08/16/24 08:41 Dose: 48 mg Documented By: Admin: 08/15/24 09:54 Dose: 48 mg Documented By: MICHOACANO Co-signed By: PRATIBHA Dexamethasone 6 mg/ Syringe 1.5 mls @ 1 mls/min IV DAILY ROLLY Stop: 08/17/24 09:02 Last Admin: 08/16/24 09:25 Dose: 1 mls/min Documented By: Admin: 08/15/24 10:20 Dose: 1 mls/min Documented By: ANABEL Sodium Chloride (Nss) 1,000 mls @ 100 mls/hr IV .Q10H ROLLY Stop: 08/17/24 08:29 Last Admin: 08/16/24 12:30 Dose: 100 mls/hr Documented By: DELL Icosapent Ethyl (Icosapent Ethyl 1 Gm Cap) 2 gm PO BID ROLLY Stop: 09/14/24 20:59 Last Admin: 08/16/24 08:41 Dose: 2 gm Documented By: Admin: 08/15/24 20:07 Dose: 2 gm Documented By: MICHAEL Levothyroxine Sodium (Levothyroxine Sodium 75 Mcg Tablet) 75 mcg PO DAILYBB ROLLY Stop: 09/14/24 06:29 Last Admin: 08/16/24 05:45 Dose: 75 mcg Documented By: Admin: 08/15/24 05:31 Dose: 75 mcg Documented By: MONA Metoprolol Succinate (Metoprolol Succ 50mg Ext Rel Tab) 100 mg PO BID ROLLY Stop: 09/13/24 20:59 Last Admin: 08/16/24 08:40 Dose: 100 mg Documented By: Admin: 08/15/24 20:06 Dose: 100 mg Documented By: Admin: 08/15/24 09:56 Dose: 100 mg Documented By: MICHOACANO Co-signed By: PRATIBHA Admin: 08/14/24 20:24 Dose: 100 mg Documented By: MONA Pantoprazole Sodium (Pantoprazole 40 Mg Tab) 40 mg PO QAM ROLLY Stop: 09/14/24 08:59 Last Admin: 08/16/24 08:41 Dose: 40 mg Documented By: Admin: 08/15/24 09:55 Dose: 40 mg Documented By: MICHOACANO Co-signed By: PRATIBHA Rivastigmine Tartrate (Rivastigmine Tartrate 1.5 Mg Cap) 1.5 mg PO BID ROLLY Stop: 09/13/24 20:59 Last Admin: 08/16/24 08:40 Dose: 1.5 mg Documented By: Admin: 08/15/24 20:06 Dose: 1.5 mg Documented By: Admin: 08/15/24 09:56 Dose: 1.5 mg Documented By: MICHOACANO Co-signed By: PRATIBHA Admin: 08/14/24 20:25 Dose: 1.5 mg Documented By: MONA Senna/Docusate Sodium (Docusate Sodium/Senna 50/8.6mg Tab) 2 tab PO HS RLOLY Stop: 09/13/24 20:59 Last Admin: 08/15/24 20:07 Dose: 2 tab Documented By: Admin: 08/14/24 20:30 Dose: 2 tab Documented By: MONA
[2024-08-16] MEDS: WARFARIN SOD 5 MG TAB PO SCH (17:56)
[2024-08-16] MEDS ORDERED: Nursing to Pharmacy Communication SCH (19:45)
[2024-08-16] MEDS: HEPARIN SOD 5,000 UNIT/0.5 ML VIAL SQ SCH (21:23)
[2024-08-16 22:35] VITALS: RESP 18
[2024-08-17] MEDS: traMADol HCL 50 MG TABLET PO PRN (01:51)
[2024-08-17 06:18] LABS: Hematocrit (blood only) 30.8 % (42.0-52.0); Hemoglobin 10.1 g/dl (14.0-18.0); Mean Corpuscular Hemoglobin 30.1 pg (25.0-34.0); Mean Corpuscular Hgb Conc 32.8 g/dL (32.0-36.0); Mean Corpuscular Volume 91.7 fL (80.0-100.0); Mean Platelet Volume 9.8 fL (9.4-12.4); Nucleated RBC # (auto) 0.02 K/uL (0.00-0.12); Nucleated RBC % (auto) 0.1 %; Platelet Count 245 K/uL (130-400); RDW Coefficient of Variation 14.3 % (11.5-14.5); RDW Standard Deviation 47.8 fL (36.4-46.3); Red Blood Count 3.36 M/uL (4.70-6.10); White Blood Count 15.45 K/ul (4.8-10.8)
[2024-08-17 06:34] LABS: BUN Creatinine Ratio 26.4 (10-20); Calcium 8.7 mg/dl (8.6-10.3); Creatinine Clr Calc Pharmacy 47.6 ml/min; Potassium 4.5 mmol/L (3.5-5.1)
--- NOTE | 2024-08-17 08:34 | Discharge Summary ---
Date of Service August 17, 2024 Admission HPI Per Admitting Provider This is a 79-year-old male presents chronic persistent back and leg pain and failing course of nonoperative care is here for surgical intervention. Principal Diagnosis Lumbar spondylosis with radiculopathy Discharge Data Allergies Allergy/AdvReac Type Severity Reaction Status Date / Time [id number] Reductase Allergy Unknown Muscle Verified 08/14/24 06:27 Inhibitor aches [Bhixnoj-Tkc-Hmm Reductase Inhibitor] flecainide AdvReac Severe Severe Verified 08/14/24 06:27 bradycardia Consultations 08/14/24 13:21 Consult Hospitalist Routine Procedures Performed Operation Date: 08/14/24 07:45 Actual Procedures p L4-L5 Decompression and Fusion, Spinal Cord Monitoring(Not Applicable) - Jef Durbin DO Ordered Studies 08/14/24 07:45 FL lumbar spine 2-3V Routine Hospital Course (1) Lumbosacral spondylosis with radiculopathy: Patient underwent lumbar decompression fusion trial as well as taken to the floor postoperative. He progressed appropriately. DANIEL drain decreasing. Extra strength testing. Tolerating physical therapy. Subsequent discharge to rehab. Discharge orders instructions from chart for further review. 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 You may walk to your tolerance. It is good exercise for your legs and back. Expect some back and intermittent leg aches and pains. 2. You may perform "counter-top" level activities (make a sandwich, simeon with a project, etc.). 3. No bending or lifting of more than 10 pounds or back twisting of any nature (roll like a log when turning in bed). 4. You may ride in a car for 20-30 minutes at a time. No driving until after your first visit with your doctor. 5. Frequent changes of position and restricting sitting to 30 minutes at a time will help limit the amount of back spasms and stiffness you may experience. 6. You may discontinue the use of ambulatory aids (cane, crutches, etc.) once your strength and confidence allow. 7. You may dispatch coordinator the shower and let water strike your incision when you arrive home at least once daily. Do not take a tub bath, sit in a hot tub or go into a swimming pool until after your first recheck in the office. 8. You may resume previous diet. SPECIAL CARE INSTRUCTIONS: VERY IMPORTANT TO READ AND REVIEW A. Your surgical incision has been closed with a cosmetic suture under the skin that will dissolve in about 6 weeks. In 14 days, you can use a pair of clean scissors and cut the suture that is left outside of the skin at the ends of your incision. 1. The small skin tapes can be removed 7 days after surgery if they have not fallen off by that point. 2. You may keep the wound open to air as much as possible to promote healing after post-op day number 5 unless told otherwise by your doctor. 3. If you think the wound looks like it is becoming infected (redness or worsening drainage) and/or you are experiencing fever, chill or worsening back pain and muscle spasms, contact the office so that we may evaluate you as soon as possible. B. Complications are uncommon, but please contact us if you have any signs or symptoms of: 1. wound infection (fever higher than 102.5 degrees F, redness, separation of wound, drainage, or increasing pain from the incision) 2. blood clots in legs (pain, swelling, redness and warmth in legs) 3. urinary tract infection (fever higher than 102.5 degrees F, burning upon urination or increased frequency of urination) 4. nerve problems (inability to walk on your toes or heels, numbness, loss of bowel or bladder control) 5. any other symptoms that concern you C. Please call the office at if you have any concerns or questions about your operation or recovery. D. No smoking! Smoking drastically decreases the chance of a solid fusion. E. Do not take any anti-inflammatory medications (Indocin, Advil, Motrin, Aspirin, Naprosyn, etc.) as these may inhibit the chance of a solid fusion. Tylenol is okay to take for pain. MANAGING PAIN AFTER SPINAL SURGERY 1. Narcotic medication is intended for short-term use and will be provided for surgical pain. Surgical pain usually lasts for a period of 4-6 weeks. Narcotic medication includes Percocet, Vicodin, Darvocet, Tylenol #3 or Lortab. 2. Longer-term pain is more appropriately treated with non-narcotic medication such as Tylenol ES. 3. Muscle spasm is not appropriately treated with narcotics. Muscle relaxers such as Soma, Flexeril or Skelaxin can be used along with Tylenol ES. 4. Remember that we all live with some "aches and pains". This is not unusual or uncommon after an injury or as we get older. a. Back pain is expected and may include muscle spasms for 4 to 6 weeks after surgery. The pain should gradually improve. If the pain worsens for no apparent reason, please contact the office. b. Intermittent leg pain may also be experienced and should not be concerned about unless it worsens for no apparent reason. If so, please contact the office. 5. We will provide appropriate medication within the normal guidelines of their prescribed use. We will also be very cautious and aware of potential abuse and extended duration of patients' medication needs. a. Pain medications are for your comfort and to assist with sleep and rest so that the tissue can heal. They are not provided in order to return to normal activity and should not be used through the day. To do so or worsening pain at night can result from ongoing tissue damage and developm ent of tolerance to the prescribed medicine. 6. Please allow 2-3 days to process refills. Prescriptions will not be mailed but must be picked up at the office. FOLLOW UP VISIT: Keep your scheduled follow-up appointment. Any questions, please call the office at . Pending Studies at Discharge: No Stand-Alone Forms: [employer], Smoking Cessation Skilled Items Patient informed of condition?: Yes DNR: No Discharge Level of Care: Skilled Communicable Disease: No Discharge Prognosis: Improving Lines: None Urinary Catheter: No Medications and DC Order Prescriptions: New tramadol 50 mg tablet 50 mg PO Q6H PRN (Reason: pain, moderate) Qty: 30 0RF oxycodone 5 mg tablet 5 mg PO Q6H PRN (Reason: pain) Qty: 30 0RF Continued rivastigmine tartrate 1.5 mg Capsule 1.5 mg PO BID metoprolol succinate 100 mg Tablet Extended Release 24 Hr 100 mg PO BID acetaminophen 500 mg Tablet 500 mg PO BID PRN (Reason: Pain) levothyroxine 75 mcg Tablet 75 mcg PO QAM famotidine 20 mg Tablet 20 mg PO QPM diltiazem HCl 120 mg Capsule,Extended Release 24 Hr 120 mg PO QAM pantoprazole 40 mg Tablet,Delayed Release (Dr/Ec) 40 mg PO QAM warfarin [Jantoven] 5 mg Tablet 5 mg PO QAM furosemide 20 mg Tablet 20 mg PO QAM fenofibrate micronized 43 mg Capsule 43 mg PO QAM icosapent ethyl [Vascepa] 1 gram Capsule 2 g PO BID aspirin 81 mg Capsule 81 mg PO QAM Fish Oil Capsule 1,000 mg PO DAILY Discharge Orders: Discharge Order (Routine); Ordered 08/17/24 Ordered By: Jef Durbin Admission Data Admit Date/Time: 08/14/24 12:42 Attending Provider: Jef Durbin Admit Provider: Jef Durbin Primary Care Provider: Wil Bailey Other Providers: Yodit Cedeño; Shaista Her
[2024-08-17 12:02] VITALS: BP 130/67; PULSE 84; TEMP 97.9; O2SAT 96
--- NOTE | 2024-08-17 12:53 | Hospitalist Progress Note ---
Date of Service August 17, 2024 Assessment & Plan (1) Lumbosacral spondylosis with radiculopathy: (2) S/P lumbar spine operation: Plan Vikram Burris is an 79y/o M with PMHx significant for HLD, HTN, hypothyroidism, COPD/centrilobular emphysema, CAD, bioprosthetic mitral valve replacement in 2012, persistent atrial fibrillation/flutter anticoagulated on warfarin, SSS s/p pacemaker, placement, HFpEF [EF = 55-59%; 07/2023], CKD stage IIIb, vitamin D deficiency, chronic low back pain, mild dementia and [place] who is being seen for routine postoperative medical management after undergoing elective L4-L5 decompression and fusion for management of lumbosacral spondylosis with rad iculopathy performed by Dr. Durbin on 08/14/2024. #Lumbosacral Spondylosis with Radiculopathy S/P Surgery: POD #4 s/p L4-L5 decompression and fusion with Dr. Durbin on 08/14/2024. EBL: 50mL & Pre-Op Hgb: 13 [as of 07/27/2024] Plan: -Per ortho for pain control, wound care, anticoagulation and activities. -Continue incentive spirometry, PT/OT when appropriate as per ortho team. -patient medically stable for discharge home from medicine perspective #AFib/Flutter on Coumadin #HTN -Continue diltiazem, metoprolol succinate. -INR 1.0 preoperatively, held warfarin for now postoperatively as per primary service. -Continue ASA 81mg daily as per primary service. -BP stable. Plan: -continue warfarin today, no bridging given higher risk of bleed than stroke risk in brief period ([id number] score of 3 vs. had recent procedure Has BLED of 2-3) -Currently tachycardic postop, sinus with PACs on telemetry #HLD, CAD: -Continue statin, fenofibrate and Vascepa. #SSS S/P Pacemaker Placement, HFpEF #Bioprosthetic MV Replacement in 2012: -Follows with Dr. Paz at [facility]. Monitor for signs/symptoms of volume overload. -Resting echocardiogram from 07/2023 --> LVEF = 55-59%, reduced RV systolic function. -Hold Lasix for now 2/2 relative hypotension. Other Chronic Medical Conditions: Mild Dementia - Continue Exelon. A&Ox3 on exam. GERD - Continue PPI. Hypothyroidism - Continue levothyroxine. Patient is medically stable for discharge from medical perspective. Feeding/fluids: regular Analgesia: tylenol/oxy Sedation: na Thromboprophylaxis: restart warfarin, prophylactic heparin Head up position: 30 degrees Ulcer prophylaxis: na Glycemic control: na Spontaneous breathing trial: na Bowel care: na Indwelling catheter removal: na Deescalation of antibiotics: na I spent a total of 30 minutes in direct patient care, including [id number] time with the patient and/or family, reviewing medical records, ordering and reviewing diagnostic tests, and coordinating care with other healthcare providers. This time includes: history taking, physical examination, medical decision making, counseling, ECG interpretation, imaging interpretation, lab interpretation, orders, and education, excluding time spent in the performance of separately billed services. Admission and Anticipated Discharge Date Admission Date: August 14, 2024 Subjective patient seen and examined at bedside. Patient doing well today and feels ready to go home. Patient continues to be medically stable for discharge given improved kidney function. Review of Systems Review of Systems: CONSTITUTIONAL: Patient denies fevers, chills, sweats and weight changes. EYES: Patient denies any visual symptoms. EARS, NOSE, AND THROAT: No difficulties with hearing. No symptoms of rhinitis or sore throat. CARDIOVASCULAR: Patient denies chest pains, palpitations, orthopnea and paroxysmal nocturnal dyspnea. RESPIRATORY: No dyspnea on exertion, no wheezing or cough. GI: No nausea, vomiting, diarrhea, constipation, abdominal pain, hematochezia or melena. : No urinary hesitancy or dribbling. No nocturia or urinary frequency. No abnormal urethral discharge. MUSCULOSKELETAL: No myalgias or arthralgias. NEUROLOGIC: No chronic headaches, no seizures. Patient denies numbness, tingling or weakness. PSYCHIATRIC: Patient denies problems with mood disturbance. No problems with anxiety. ENDOCRINE: No excessive urination or excessive thirst. DERMATOLOGIC: Patient denies any rashes or skin changes. Physical Exam Physical Exam: Gen: A&O 3 NAD HEENT: NCAT, EOMI, not icteric. External ears normal. No rhinorrhea. Moist mucous membranes. Neck: Supple, full range of motion, no observable masses, No meningeal sign. Lungs: No Respiratory distress. CV: RRR, no edema. Abdomen: Soft, nondistended, No rebound tenderness. MSK: No joint swelling, no redness. Skin: No rashes, petechiae, lesions. Normal color per patient. s/p spinal procedure Neuro: Normal Gait, Grossly intact. Psych: Appropriate for situation. Results & Data Results & Data Vital Signs (Past 12 Hours) Vital Signs Temp Pulse Pulse Pulse Resp BP BP 08/17/24 12:00 36.6 C 84 18 130/67 08/17/24 11:33 36.4 C L 99 H 117 H 105 H 18 122/70 132/77 08/17/24 08:00 36.4 C L 99 H 18 122/70 08/17/24 03:27 36.4 C L 105 H 18 132/77 Pulse Ox O2 Del Method 08/17/24 12:00 96 Room Air 08/17/24 11:33 94 08/17/24 08:00 94 Room Air 08/17/24 03:27 94 Room Air Laboratory Results - Personally interpreted, creatinine decreased significantly with IV fluids Medications Administered Acetaminophen (Acetaminophen 500 Mg Tab) 1,000 mg PO Q8H PRN PRN Reason: MILD Pain Scale 1,2,3 & Pre PT Stop: 09/13/24 13:20 Last Admin: 08/16/24 20:21 Dose: 1,000 mg Documented By: Admin: 08/16/24 03:23 Dose: 1,000 mg Documented By: MICHAEL Aspirin (Aspirin 81 Mg Ectab) 81 mg PO [facility] Stop: 09/14/24 08:59 Last Admin: 08/17/24 08:08 Dose: 81 mg Documented By: Admin: 08/16/24 08:41 Dose: 81 mg Documented By: Admin: 08/15/24 09:53 Dose: 81 mg Documented By: MICHOACANO Co-signed By: PRATIBHA Diltiazem HCl (Diltiazem Hcl 120 Mg Capcr) 120 mg PO [facility] Stop: 09/14/24 08:59 Last Admin: 08/17/24 08:09 Dose: 120 mg Documented By: Admin: 08/16/24 08:40 Dose: 120 mg Documented By: Admin: 08/15/24 09:53 Dose: 120 mg Documented By: MICHOACANO Co-signed By: PRATIBHA Famotidine (Famotidine 20 Mg Tab) 20 mg PO QPM [facility] Stop: 09/13/24 20:59 Last Admin: 08/16/24 20:20 Dose: 20 mg Documented By: Admin: 08/15/24 20:07 Dose: 20 mg Documented By: Admin: 08/14/24 20:25 Dose: 20 mg Documented By: MONA Fenofibrate (Fenofibrate Nanocrystallized 48 Mg Tablet) 48 mg PO QAM [facility] Stop: 09/14/24 08:59 Last Admin: 08/17/24 08:10 Dose: 48 mg Documented By: Admin: 08/16/24 08:41 Dose: 48 mg Documented By: Admin: 08/15/24 09:54 Dose: 48 mg Documented By: MICHOACANO Co-signed By: PRATIBHA Heparin Sodium (Porcine) (Heparin Sod 5,000 Unit/0.5 Ml Vial) 5,000 units SQ Q8 [facility] Stop: 09/15/24 21:59 Last Admin: 08/17/24 05:50 Dose: 5,000 units Documented By: Admin: 08/16/24 21:23 Dose: 5,000 units Documented By: MICHAEL Icosapent Ethyl (Icosapent Ethyl 1 Gm Cap) 2 gm PO BID ROLLY Stop: 09/14/24 20:59 Last Admin: 08/17/24 08:10 Dose: 2 gm Documented By: Admin: 08/16/24 20:21 Dose: 2 gm Documented By: Admin: 08/16/24 08:41 Dose: 2 gm Documented By: Admin: 08/15/24 20:07 Dose: 2 gm Documented By: MICHAEL Levothyroxine Sodium (Levothyroxine Sodium 75 Mcg Tablet) 75 mcg PO DAILYBB ROLLY Stop: 09/14/24 06:29 Last Admin: 08/17/24 05:50 Dose: 75 mcg Documented By: Admin: 08/16/24 05:45 Dose: 75 mcg Documented By: Admin: 08/15/24 05:31 Dose: 75 mcg Documented By: MONA Metoprolol Succinate (Metoprolol Succ 50mg Ext Rel Tab) 100 mg PO BID ROLLY Stop: 09/13/24 20:59 Last Admin: 08/17/24 08:15 Dose: 100 mg Documented By: Admin: 08/16/24 20:21 Dose: 100 mg Documented By: Admin: 08/16/24 08:40 Dose: 100 mg Documented By: Admin: 08/15/24 20:06 Dose: 100 mg Documented By: Admin: 08/15/24 09:56 Dose: 100 mg Documented By: MICHOACANO Co-signed By: PRATIBHA Admin: 08/14/24 20:24 Dose: 100 mg Documented By: MONA Pantoprazole Sodium (Pantoprazole 40 Mg Tab) 40 mg PO QAM ROLLY Stop: 09/14/24 08:59 Last Admin: 08/17/24 08:11 Dose: 40 mg Documented By: Admin: 08/16/24 08:41 Dose: 40 mg Documented By: Admin: 08/15/24 09:55 Dose: 40 mg Documented By: MICHOACANO Co-signed By: PRATIBHA Rivastigmine Tartrate (Rivastigmine Tartrate 1.5 Mg Cap) 1.5 mg PO BID ROLLY Stop: 09/13/24 20:59 Last Admin: 08/17/24 08:11 Dose: 1.5 mg Documented By: Admin: 08/16/24 20:19 Dose: 1.5 mg Documented By: Admin: 08/16/24 08:40 Dose: 1.5 mg Documented By: Admin: 08/15/24 20:06 Dose: 1.5 mg Documented By: Admin: 08/15/24 09:56 Dose: 1.5 mg Documented By: MICHOACNAO Co-signed By: PRATIBHA Admin: 08/14/24 20:25 Dose: 1.5 mg Documented By: MONA Senna/Docusate Sodium (Docusate Sodium/Senna 50/8.6mg Tab) 2 tab PO HS [facility] Stop: 09/13/24 20:59 Last Admin: 08/16/24 20:20 Dose: 2 tab Documented By: Admin: 08/15/24 20:07 Dose: 2 tab Documented By: Admin: 08/14/24 20:30 Dose: 2 tab Documented By: MONA Tramadol HCl (Tramadol Hcl 50 Mg Tablet) 50 - 100 mg PO Q4H PRN PRN Reason: Moderate-Severe pain & Pre PT Stop: 09/13/24 13:20 Last Admin: 08/17/24 01:51 Dose: 100 mg Documented By: DM Warfarin Sodium (Warfarin Sod 5 Mg Tab) 5 mg PO DAILY@1600 [facility] Stop: 09/15/24 17:14 Last Admin: 08/16/24 17:56 Dose: 5 mg Documented By: DELL
== END 2024-08-17 13:15 | DRG 402 ==
LOC: ASU 06:03 → SUATTDRO 12:42 → 3N 12:42 → 2S 08-15 11:22